=== PATIENT | female | born 1950 | race Caucasian/White ===

== ENCOUNTER 2023-04-11 17:06 | Inpatient (IN) ==
[2023-04-11] MEDS ORDERED: SODIUM CHLORIDE 0.9% 500 ML IV SCH (17:45)
[2023-04-11 18:05] LABS: Basophils # (auto) 0.04 K/uL (0-0.2); Basophils % (auto) 0.3 %; Eosinophils # (auto) 0.28 K/uL (0-0.50); Eosinophils % (auto) 1.8 %; Hematocrit (blood only) 35.6 % (37.0-47.0); Hemoglobin 10.8 g/dl (12.0-16.0); Immature Granulocytes # (auto) 0.07 K/uL (0.01-0.20); Immature Granulocytes % (auto) 0.5 %; Lymphocytes # (auto) 0.98 K/uL (1.2-3.4); Lymphocytes % (auto) 6.3 %; Mean Corpuscular Hemoglobin 23.4 pg (25.0-34.0); Mean Corpuscular Hgb Conc 30.3 g/dL (32.0-36.0); Mean Corpuscular Volume 77.1 fL (80.0-100.0); Mean Platelet Volume 9.9 fL (9.4-12.4); Monocytes # (auto) 0.89 K/uL (0.11-0.59); Monocytes % (auto) 5.7 %; Neutrophils # (auto) 13.25 K/uL (1.40-6.50); Neutrophils % (auto) 85.4 %; Platelet Count 409 K/uL (130-400); RDW Coefficient of Variation 16.5 % (11.5-14.5); RDW Standard Deviation 45.7 fL (36.4-46.3); Red Blood Count 4.62 M/uL (4.20-5.40); White Blood Count 15.51 K/ul (4.8-10.8)
--- NOTE | 2023-04-11 18:13 | Emergency Department Note ---
Impression & Plan Colitis, Metastatic carcinoma, A-fib, Weakness, Dehydration ED Provider Note Provider: Doc Engel MD DATE OF SERVICE: 04/11/2023 CHIEF COMPLAINT: Weakness, diarrhea, difficulty swallowing HISTORY OF PRESENT ILLNESS: Patient is a 72-year-old female history of cervical transfer apparently initially treated in 2009 but with recurrence now into her spine following with [facility] oncology as well as radiation oncology here presenting with family for worsening weakness development of diarrhea and difficulty eating and drinking over the last several days. No blood in the stool. States it feels like he tries to eat something and feels like it almost gets stuck in her esophagus and then comes back up. Generally weak but no fevers. Denies significant chest pain or shortness of breath. Some diffuse abdominal pain sometimes sharp in nature. No falls. Has been using some tramadol at home for pain. Feels like she is dehydrated. Denies significant leg swelling at this time. History of C. difficile in the recent past and hospitalized at [facility] by their report. 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 There was concern for toxicity from chemotherapy and that she is considering radiation therapy. PAST MEDICAL HISTORY: As noted above MEDICATIONS: Reviewed home medication list includes Eliquis SOCIAL HISTORY: Resides at home with sister PHYSICAL EXAM: GENERAL: alert and oriented in no acute distress on stretcher fatigued and appears Head: normocephalic and atraumatic EYES: No injection, discharge or icterus. NECK: Trachea midline. ENT: Mucous membranes pink and somewhat tacky LUNGS: Airway patent. No retractions. Breath sounds clear HEART: Irregularly irregular rate and rhythm. No chest wall tenderness ABDOMEN: Soft with some mild mid abdominal tenderness. SKIN: Acyanotic, warm, dry, with some scattered petechiae on the left forearm. EXTREMITIES: Without swelling, tenderness or deformity NEUROLOGICAL: No focal deficits. No aphasia. No facial droop or slurred speech. EK bpm atrial fibrillation without acute ST segment elevation or obvious depression noted with a QTc of 449. CONTINUOUS CARDIAC MONITORING: was ordered and showed a heart rate of 80s-90s bpm in atrial fibrillation Patient's laboratory studies and imaging reviewed. Differential includes Infection, gastrointestinal issue such as perforation, obstruction, C. difficile dehydration, metabolic abnormality, hypo/hyperglycemia, electrolyte disturbance, anemia, hypoxia, cardiac sources, neurologic, as well as other pathologies. IMPRESSION/MEDICAL DECISION MAKING: Stool studies ordered. Labs and cultures ordered given her history of radiation cancer. Not on chemotherapy by her report. Question if the difficulty swallowing may be a bit of radiation esophagitis. No blood reported in diarrhea however. Concerns for some dehydration. History of some "finicky "kidneys according to family. Case management assisting with obtaining outpatient [facility] oncology records. Given the patient's abdominal tenderness a CT scan without contrast with her renal function was ordered there and given some IV fluid hydration. Patient and rate controlled A-fib with history of similar by report. Basic blood work obtained here with leukocytosis of 15. Mild anemia of 10.8. Platelets mildly elevated 409. Likely more dehydration. Cautiously hydrate given history of CHF by record. Chemistries with mild hyponatremia and hypokalemia. Creatinine of 2.16 but unclear exact baseline. Lactate not elevated and doubt sepsis. No severe transaminitis or bilirubin elevation. Magnesium within normal limits. No TSH abnormality. Lipase mildly elevated 35.4 began unsure of exact baseline. Urinalysis without signs of infection. Negative COVID. CT scan with findings of infectious inflammatory colitis. Stool sample is pending. Given a bit of morphine and Zofran here as well as some maintenance IV fluid. Discussed with her staying for further evaluation. Stool testing pending but do have some suspicions that she has had recent C. difficile and the stool was very green and consistent with C. difficile. Ordered dose of oral vancomycin given what clearly appears like a C. difficile stool sample. Discussed with patient and family and they are agreeable to plan to stay for observation and further care. Discussed with hospitalist. DIAGNOSIS: Colitis, weakness, dehydration, afib, metastatic carcinoma DISPOSITION: Hospitalist will evaluate Patient was agreeable with this plan. Past Med/Surg History Medical History (Updated 04/11/23 @ 20:36 by Doc Engel M.D.) Afib Anemia Anticoagulated C. difficile colitis CAD (coronary artery disease) Cellulitis Cervical cancer Chronic diastolic heart failure CKD (chronic kidney disease) Depressive disorder DVT (deep venous thrombosis) Dysphagia Hx of radiation therapy pelvic and cervical brachytherapy 2009 Hyperlipidemia Hypertension Hypothyroidism IBS (irritable colon syndrome) Melanoma back Pulmonary emboli Reflux esophagitis Sepsis Type 2 diabetes mellitus Surgical History (Updated 03/17/23 @ 11:55 by Amber Velasquez RN) H/O heart artery stent Social History (Updated 03/17/23 @ 10:35 by Amber Velasquez RN) Smoking Status: Never smoker Tobacco Type: Cigarettes packs per day: 1.5; Second Hand Exposure: Yes; Do You Dip or Chew Tobacco: No; Hx Alcohol Use: No Hx Substance Use: No Preferred Language: Armenian Communication Ability: Effective Hearing Ability: Normal Principal Network Architect Required: No Beliefs That Will Affect Care: None Current Living Situation: Family Current Living Situation Comment: has own home, currently staying with sister current occupational status: retired current occupation: worked at [employer] Feels Safe at Home: Yes during the past year weight has: decreased > 10 lbs Assistive Devices: Glasses, Raised Toilet Seat and Walker Allergies Allergies Allergy/AdvReac Type Severity Reaction Status Date / Time propofol Allergy Intermediate nausea and Unverified 04/11/23 19:29 vomiting fentanyl AdvReac Intermediate nausea and Unverified 04/11/23 19:29 vomiting GREASE Allergy Intermediate GERD Uncoded 04/11/23 19:29 tomato sauce Allergy Intermediate GERD Uncoded 04/11/23 19:29 Home Meds Home Medications Medication Instructions Recorded Confirmed multivitamin 1 tab PO DAILY ##0 03/05/10 04/11/23 tramadol 50 mg tablet 50 mg PO Q6HR PRN ##0 03/04/11 04/11/23 acetaminophen 325 mg capsule 325 mg PO QID PRN Pain 03/17/23 04/11/23 amiodarone 200 mg tablet 200 mg PO DAILY 03/17/23 04/11/23 amlodipine 5 mg tablet 5 mg PO DAILY 03/17/23 04/11/23 apixaban 5 mg tablet (Eliquis) 5 mg PO BID 03/17/23 04/11/23 atorvastatin 80 mg tablet 80 mg PO DAILY 03/17/23 04/11/23 cholecalciferol (vitamin D3) 25 25 mcg PO DAILY 03/17/23 04/11/23 mcg (1,000 unit) capsule clonidine HCl 0.2 mg tablet 0.2 mg PO BID 03/17/23 04/11/23 duloxetine 20 mg capsule,delayed 20 mg PO DAILY 03/17/23 04/11/23 release ezetimibe 10 mg tablet (Zetia) 10 mg PO DAILY 03/17/23 04/11/23 famotidine 40 mg tablet 40 mg PO DAILY 03/17/23 04/11/23 fenofibrate 160 mg tablet 80 mg PO DAILY 03/17/23 04/11/23 ferrous sulfate 325 mg (65 mg 325 mg PO DAILY 03/17/23 04/11/23 iron) tablet,delayed release furosemide 40 mg tablet 40 mg PO BID 03/17/23 04/11/23 glipizide 10 mg tablet 5 mg PO DAILY 03/17/23 04/11/23 levothyroxine 25 mcg capsule 25 mcg PO DAILY 03/17/23 04/11/23 lisinopril 20 mg tablet 20 mg PO DAILY 03/17/23 04/11/23 magnesium oxide 500 mg tablet 500 mg PO DAILY 03/17/23 04/11/23 melatonin 3 mg capsule 3 mg PO HS 03/17/23 04/11/23 metoclopramide HCl 5 mg tablet 5 mg PO Q6H 03/17/23 04/11/23 metoprolol succinate 25 mg 25 mg PO DAILY 03/17/23 04/11/23 tablet,extended release 24 hr phenylephrine 0.25 %-mineral oil 1 applic CA QID PRN Hemorrhoids 03/17/23 04/11/23 14 %-petrolatm 74.9 % rectal ointment (Preparation H) Results & Data (ED) Vital Signs Vital Signs - 24 hr 04/11/23 17:14 04/11/23 17:42 04/11/23 17:49 Temperature 36.0 C L Temperature Source Temporal Artery Scan Pulse Rate 105 H 96 H Pulse Rate from SpO2 Sensor Respiratory Rate 20 Respiratory Effort / Characteristics Non-Labored Spontaneous Respiratory Depth Normal Respiratory Pattern Regular Blood Pressure 95/53 L Blood Pressure Mean 67 Blood Pressure Position Sitting Pulse Oximetry 97 97 Oxygen Delivery Method Room Air Sepsis Recent Fever Within 48 Hours No Sepsis New/Unexplained Change in Mental Status No Sepsis Action Taken by Nursing Physician Notified 04/11/23 18:00 04/11/23 19:37 04/11/23 19:56 Temperature Temperature Source Pulse Rate 92 H 93 H 86 Pulse Rate from SpO2 Sensor 91 H Respiratory Rate 22 16 Respiratory Effort / Characteristics Respiratory Depth Respiratory Pattern Blood Pressure 108/59 L 115/70 Blood Pressure Mean 75 85 Blood Pressure Position Pulse Oximetry 96 99 Oxygen Delivery Method Room Air Sepsis Recent Fever Within 48 Hours Sepsis New/Unexplained Change in Mental Status Sepsis Action Taken by Nursing Laboratory Data 04/11/23 17:30 04/11/23 17:30 Lab Results 04/11/23 04/11/23 04/11/23 Range/Units 17:30 17:30 17:30 WBC 15.51 H (4.8-10.8) K/ul RBC 4.62 (4.20-5.40) M/uL Hgb 10.8 L (12.0-16.0) g/dl Hct 35.6 L (37.0-47.0) % MCV 77.1 L (80.0-100.0) fL MCH 23.4 L (25.0-34.0) pg MCHC 30.3 L (32.0-36.0) g/dL RDW Std Deviation 45.7 (36.4-46.3) fL RDW Coeff of Shelley 16.5 H (11.5-14.5) % Plt Count 409 H (130-400) K/uL MPV 9.9 (9.4-12.4) fL Immature Gran % (Auto) 0.5 % Neut % (Auto) 85.4 % Lymph % (Auto) 6.3 % Toombs % (Auto) 5.7 % Eos % (Auto) 1.8 % Baso % (Auto) 0.3 % Neut # (Auto) 13.25 H (1.40-6.50) K/uL Lymph # (Auto) 0.98 L (1.2-3.4) K/uL Toombs # (Auto) 0.89 H (0.11-0.59) K/uL Eos # (Auto) 0.28 (0-0.50) K/uL Baso # (Auto) 0.04 (0-0.2) K/uL Immature Gran # (Auto) 0.07 (0.01-0.20) K/uL PT 15.2 H (9.0-12.0) Seconds INR 1.4 H (0.9-1.1) Sodium 134 L (136-145) mmol/L Potassium 3.3 L (3.5-5.1) mmol/L Chloride 100 (98-107) mmol/L Carbon Dioxide 24 (21-32) mmol/L Anion Gap 10 (3-11) BUN 40 H (6-23) mg/dl Creatinine 2.16 H (0.6-1.2) mg/dl Est Cr Clr Drug Dosing Not Reportable Est GFR ( Amer) 25.7 ml/min Est GFR (Non-Af Amer) 22.2 ml/min BUN/Creatinine Ratio 18.5 (10-20) Glucose 183 H (70-99(Fasting)) mg/dl Lactate (0.4-2.0) mmol/L Calcium 9.5 (8.6-10.3) mg/dl Magnesium 2.0 (1.7-2.4) mg/dl Total Bilirubin 0.5 (0.2-1.0) mg/dl AST 43 H (13-39) U/L ALT 23 (7-52) U/L Alkaline Phosphatase 53 (34-104) U/L Total Creatine Kinase 23 L (26-192) U/L Troponin I High Sens 35.4 H (0-14) pg/ml Total Protein 6.6 (6.0-8.3) gm/dl Albumin 3.2 L (3.4-5.0) gm/dl Globulin 3.4 (2.5-4.0) gm/dl Albumin/Globulin Ratio 0.9 (0.9-2) Lipase 14 (11-82) U/L TSH (0.300-4.500) uIu/ml Urine Color Urine Appearance (Clear) Urine pH (4.5-7.5) Ur Specific Marianna (1.000-1.030) Urine Protein (Negative) Urine Glucose (UA) (Negative) Urine Ketones (Negative) Urine Blood (Negative) Urine Nitrite (Negative) Urine Bilirubin (Negative) Urine Urobilinogen (Negative) Ur Leukocyte Esterase (Negative) Urine WBC (Auto) (0-5) /hpf Urine RBC (Auto) (0-4) /hpf U Hyaline Cast (Auto) (0-5) /lpf U Epithel Cells (Auto) (0-5) /lpf Urine Bacteria (Auto) (Negative) Urine Yeast SARS-CoV-2, RNA, NAAT (NEGATIVE) 08/04/11/23 04/11/23 Range/Units 17:30 17:30 17:30 WBC (4.8-10.8) K/ul RBC (4.20-5.40) M/uL Hgb (12.0-16.0) g/dl Hct (37.0-47.0) % MCV (80.0-100.0) fL MCH (25.0-34.0) pg MCHC (32.0-36.0) g/dL RDW Std Deviation (36.4-46.3) fL RDW Coeff of Shelley (11.5-14.5) % Plt Count (130-400) K/uL MPV (9.4-12.4) fL Immature Gran % (Auto) % Neut % (Auto) % Lymph % (Auto) % Toombs % (Auto) % Eos % (Auto) % Baso % (Auto) % Neut # (Auto) (1.40-6.50) K/uL Lymph # (Auto) (1.2-3.4) K/uL Toombs # (Auto) (0.11-0.59) K/uL Eos # (Auto) (0-0.50) K/uL Baso # (Auto) (0-0.2) K/uL Immature Gran # (Auto) (0.01-0.20) K/uL PT (9.0-12.0) Seconds INR (0.9-1.1) Sodium (136-145) mmol/L Potassium (3.5-5.1) mmol/L Chloride (98-107) mmol/L Carbon Dioxide (21-32) mmol/L Anion Gap (3-11) BUN (6-23) mg/dl Creatinine (0.6-1.2) mg/dl Est Cr Clr Drug Dosing Est GFR ( Amer) ml/min Est GFR (Non-Af Amer) ml/min BUN/Creatinine Ratio (10-20) Glucose (70-99(Fasting)) mg/dl Lactate 1.7 (0.4-2.0) mmol/L Calcium (8.6-10.3) mg/dl Magnesium (1.7-2.4) mg/dl Total Bilirubin (0.2-1.0) mg/dl AST (13-39) U/L ALT (7-52) U/L Alkaline Phosphatase (34-104) U/L Total Creatine Kinase (26-192) U/L Troponin I High Sens (0-14) pg/ml Total Protein (6.0-8.3) gm/dl Albumin (3.4-5.0) gm/dl Globulin (2.5-4.0) gm/dl Albumin/Globulin Ratio (0.9-2) Lipase (11-82) U/L TSH 3.354 (0.300-4.500) uIu/ml Urine Color Urine Appearance (Clear) Urine pH (4.5-7.5) Ur Specific Marianna (1.000-1.030) Urine Protein (Negative) Urine Glucose (UA) (Negative) Urine Ketones (Negative) Urine Blood (Negative) Urine Nitrite (Negative) Urine Bilirubin (Negative) Urine Urobilinogen (Negative) Ur Leukocyte Esterase (Negative) Urine WBC (Auto) (0-5) /hpf Urine RBC (Auto) (0-4) /hpf U Hyaline Cast (Auto) (0-5) /lpf U Epithel Cells (Auto) (0-5) /lpf Urine Bacteria (Auto) (Negative) Urine Yeast SARS-CoV-2, RNA, NAAT NEGATIVE (NEGATIVE) 04/11/23 Range/Units 18:50 WBC (4.8-10.8) K/ul RBC (4.20-5.40) M/uL Hgb (12.0-16.0) g/dl Hct (37.0-47.0) % MCV (80.0-100.0) fL MCH (25.0-34.0) pg MCHC (32.0-36.0) g/dL RDW Std Deviation (36.4-46.3) fL RDW Coeff of Shelley (11.5-14.5) % Plt Count (130-400) K/uL MPV (9.4-12.4) fL Immature Gran % (Auto) % Neut % (Auto) % Lymph % (Auto) % Toombs % (Auto) % Eos % (Auto) % Baso % (Auto) % Neut # (Auto) (1.40-6.50) K/uL Lymph # (Auto) (1.2-3.4) K/uL Toombs # (Auto) (0.11-0.59) K/uL Eos # (Auto) (0-0.50) K/uL Baso # (Auto) (0-0.2) K/uL Immature Gran # (Auto) (0.01-0.20) K/uL PT (9.0-12.0) Seconds INR (0.9-1.1) Sodium (136-145) mmol/L Potassium (3.5-5.1) mmol/L Chloride (98-107) mmol/L Carbon Dioxide (21-32) mmol/L Anion Gap (3-11) BUN (6-23) mg/dl Creatinine (0.6-1.2) mg/dl Est Cr Clr Drug Dosing Est GFR ( Amer) ml/min Est GFR (Non-Af Amer) ml/min BUN/Creatinine Ratio (10-20) Glucose (70-99(Fasting)) mg/dl Lactate (0.4-2.0) mmol/L Calcium (8.6-10.3) mg/dl Magnesium (1.7-2.4) mg/dl Total Bilirubin (0.2-1.0) mg/dl AST (13-39) U/L ALT (7-52) U/L Alkaline Phosphatase (34-104) U/L Total Creatine Kinase (26-192) U/L Troponin I High Sens (0-14) pg/ml Total Protein (6.0-8.3) gm/dl Albumin (3.4-5.0) gm/dl Globulin (2.5-4.0) gm/dl Albumin/Globulin Ratio (0.9-2) Lipase (11-82) U/L TSH (0.300-4.500) uIu/ml Urine Color Yellow Urine Appearance Cloudy A (Clear) Urine pH 5.0 (4.5-7.5) Ur Specific Marianna 1.010 (1.000-1.030) Urine Protein 1+ H (Negative) Urine Glucose (UA) Negative (Negative) Urine Ketones Negative (Negative) Urine Blood Negative (Negative) Urine Nitrite Negative (Negative) Urine Bilirubin Negative (Negative) Urine Urobilinogen Negative (Negative) Ur Leukocyte Esterase Negative (Negative) Urine WBC (Auto) 1-5 (0-5) /hpf Urine RBC (Auto) 0-4 (0-4) /hpf U Hyaline Cast (Auto) 1-5 (0-5) /lpf U Epithel Cells (Auto) >30 H (0-5) /lpf Urine Bacteria (Auto) Negative (Negative) Urine Yeast Not Reportable SARS-CoV-2, RNA, NAAT (NEGATIVE) Administered Medications Discontinued Medications Sodium Chloride (Nss) 500 mls @ 999 mls/hr IV .Q31M JACKY Stop: 04/11/23 18:15 Last Infusion: 04/11/23 18:26 Dose: 0 mls/hr Documented By: Admin: 04/11/23 17:55 Dose: 999 mls/hr Documented By: ALEKSANDAR Lactated Ringer's (Lr) 1,000 mls @ 125 mls/hr IV .Q8H JACKY Stop: 05/11/23 19:59 Last Admin: 04/11/23 20:24 Dose: 125 mls/hr Documented By: MORE Morphine Sulfate (Morphine Sulfate 2 Mg/Ml Carp) 2 mg IV NOW STA Stop: 04/11/23 19:57 Last Admin: 04/11/23 20:25 Dose: 2 mg Documented By: MORE Ondansetron HCl (Ondansetron Inj 2 Mg/Ml 2 Ml Vial) 4 mg IV NOW STA Stop: 04/11/23 19:57 Last Admin: 04/11/23 20:24 Dose: 4 mg Documented By: MORE Imaging Data Radiologist's Impression: Chest X-Ray 04/11/23 17:40 XR chest 1V portable CLINICAL HISTORY: weakness TECHNIQUE: Single frontal radiograph of the chest was obtained. Comparison: None available at the time of this dictation. FINDINGS: No lines and tubes are seen. The cardiomediastinal silhouette is normal. The lungs are clear. No evidence of pleural effusion or pneumothorax. IMPRESSION: No acute chest disease. ACT 112: Negative or not required by law. Electronically signed by: Papo Parsons M.D. 04/11/2023 6:19 PM Abdomen/Pelvis CT 04/11/23 17:56 CT abd pelvis wo con CLINICAL HISTORY: abd pain, diarrhea, Cancer, dehydration TECHNIQUE: Helical axial images of the abdomen and pelvis were obtained. Automated dose lowering techniques and/or adjustment according to patient size were utilized for this exam. This exam was performed without intravenous contrast. CT DOSE: 724.86 mGy.cm COMPARISON: Comparison is made to CT abdomen pelvis 03/22/[address] abdomen pelvis 02/14/2023 FINDINGS: Lower chest: Bibasilar atelectasis versus scarring is seen. Liver: Unremarkable. No focal lesions are seen. Gallbladder and biliary tree: Cholelithiasis is seen without evidence of cholecystitis. No intra- or extrahepatic biliary ductal dilation. Pancreas: Fatty replacement of the pancreas is seen. Spleen: Calcifications are noted in the spleen compatible with prior granulomatous disease. A splenule is seen. Adrenals: Unremarkable. Kidneys and ureters: Right renal cyst is seen. Bladder: Unremarkable. Reproductive organs: Unremarkable. Bowel: Bowel wall thickening and fat stranding is seen in the cecum. The appendix is unremarkable. There is a small hiatal hernia. Lymph nodes Retroperitoneal: Unremarkable. Pelvic: Unremarkable. Mesenteric: Unremarkable. Peritoneum: Normal. Vessels: Atherosclerotic calcifications are seen. Abdominal wall: Unremarkable. Bones: Degenerative changes in the visualized spine. Lytic lesion with a soft tissue mass is noted in the vertebral body. IMPRESSION: 1. Thickening of the cecum is seen compatible with infectious/inflammatory colitis. Lytic lesion of the L5 vertebra, likely neoplastic, seen on the prior radiation therapy planning CT. ACT 112: Negative or not required by law. Electronically signed by: Papo Parsons M.D. 04/11/2023 8:16 PM Discharge Plan Visit Data Chief Complaint: Illness Stated Complaint: CANCER,WEAK,DIARREAH,NOT ABLE TO KEEP FOOD DOWN ED Provider: Doc Engel Discharge Problem: Colitis, Metastatic carcinoma, A-fib, Weakness, Dehydration Patient Disposition: Being Evaluated by Hospitalist Forms Stand Alone Forms: My [facility] Prescriptions Prescriptions: No Action amiodarone 200 mg tablet 200 mg PO DAILY acetaminophen 325 mg capsule 325 mg PO QID PRN (Reason: Pain) amlodipine 5 mg tablet 5 mg PO DAILY atorvastatin 80 mg tablet 80 mg PO DAILY clonidine HCl 0.2 mg tablet 0.2 mg PO BID duloxetine 20 mg capsule,delayed release(DR/EC) 20 mg PO DAILY Eliquis 5 mg tablet 5 mg PO BID ezetimibe [Zetia] 10 mg tablet 10 mg PO DAILY famotidine 40 mg tablet 40 mg PO DAILY fenofibrate 160 mg tablet 80 mg PO DAILY ferrous sulfate 325 mg (65 mg iron) tablet,delayed release (DR/EC) 325 mg PO DAILY furosemide 40 mg tablet 40 mg PO BID glipizide 10 mg tablet 5 mg PO DAILY levothyroxine 25 mcg capsule 25 mcg PO DAILY lisinopril 20 mg tablet 20 mg PO DAILY magnesium oxide 500 mg tablet 500 mg PO DAILY melatonin 3 mg capsule 3 mg PO HS metoclopramide HCl 5 mg tablet 5 mg PO Q6H Patient Comments: 1 tablet in morning, 1 tablet at noon, 1 tablet in the evening, 1 tablet before bedtime metoprolol succinate 25 mg tablet extended release 24 hr 25 mg PO DAILY Preparation H 0.25-14-74.9 % ointment 1 applic CA QID PRN (Reason: Hemorrhoids) cholecalciferol (vitamin D3) 25 mcg (1,000 unit) capsule 25 mcg PO DAILY multivitamin Tablet 1 tab PO DAILY Qty: 0 tramadol 50 mg Tablet 50 mg PO Q6HR PRN Qty: 0 Patient Comments: PRN PAIN Referrals Referrals: Ann Pascual DO [Outside Practitioners] -
--- NOTE | 2023-04-11 18:20 | XRay Report ---
XR chest 1V portable CLINICAL HISTORY: weakness TECHNIQUE: Single frontal radiograph of the chest was obtained. Comparison: None available at the time of this dictation. FINDINGS: No lines and tubes are seen. The cardiomediastinal silhouette is normal. The lungs are clear. No evid ence of pleural effusion or pneumothorax. IMPRESSION: No acute chest disease. ACT 112: Negative or not required by law. Electronically signed by: Papo Parsons M.D. 04/11/2023 6:19 PM
[2023-04-11 18:22] LABS: Alanine Aminotransferase 23 U/L (7-52); Albumin Globulin Ratio 0.9 (0.9-2); Albumin Level 3.2 gm/dl (3.4-5.0); Alkaline Phosphatase 53 U/L (34-104); Anion Gap 10 (3-11); Aspartate Aminotransferase 43 U/L (13-39); BUN Creatinine Ratio 18.5 (10-20); Bilirubin,Total 0.5 mg/dl (0.2-1.0); Blood Urea Nitrogen 40 mg/dl (6-23); Calcium 9.5 mg/dl (8.6-10.3); Carbon Dioxide 24 mmol/L (21-32); Chloride 100 mmol/L (98-107); Creatine Kinase 23 U/L (26-192); Est GFR (African American) 25.7 ml/min; Est GFR (Non-African American) 22.2 ml/min; Globulin 3.4 gm/dl (2.5-4.0); Glucose 183 mg/dl (70-99(Fasting)); Potassium 3.3 mmol/L (3.5-5.1); Sodium 134 mmol/L (136-145); Total Protein 6.6 gm/dl (6.0-8.3)
[2023-04-11 18:29] LABS: Troponin I High Sensitivity 35.4 pg/ml (0-14)
[2023-04-11 18:33] LABS: INR 1.4 (0.9-1.1); Prothrombin Time 15.2 Seconds (9.0-12.0)
[2023-04-11 19:01] LABS: Appearance Urine Cloudy (Clear); Bacteria Urine Automated Negative (Negative); Bilirubin Urine Negative (Negative); Blood Urine Negative (Negative); Color Urine Yellow; Epithelial Cell Urine Auto >30 /lpf (0-5); Glucose Urine UA Negative (Negative); Ketones Urine Negative (Negative); Leukocyte Esterase Urine Negative (Negative); Nitrite Urine Negative (Negative); Protein Urine 1+ (Negative); RBC Urine Automated 0-4 /hpf (0-4); Urobilinogen Urine Negative (Negative)
[2023-04-11] MEDS ORDERED: MoRPHine SULFATE 2 MG/ML CARP IV STA (19:56)
[2023-04-11] MEDS ORDERED: ONDANSETRON INJ 2 MG/ML 2 ML VIAL IV STA (19:56)
[2023-04-11 19:57] LABS: Lipase 14 U/L (11-82)
[2023-04-11] MEDS ORDERED: LACTATED RINGER'S 1,000 ML IV SCH (20:00)
--- NOTE | 2023-04-11 20:18 | CT Scan Report ---
CT abd pelvis wo con CLINICAL HISTORY: abd pain, diarrhea, Cancer, dehydration TECHNIQUE: Helical axial images of the abdomen and pelvis were obtained. Automated dose lowering tech niques and/or adjustment according to patient size were utilized for this exam. This exam was perfor med without intravenous contrast. CT DOSE: 724.86 mGy.cm COMPARISON: Comparison is made to CT abdomen pelvis 03/22/[address] abdomen pelvis 02/14/2023 FINDINGS: Lower chest: Bibasilar atelectasis versus scarring is seen. Liver: Unremarkable. No focal lesions are seen. Gallbladder and biliary tree: Cholelithiasis is seen without evidence of cholecystitis. No intra- or extrahepatic biliary ductal dilation. Pancreas: Fatty replacement of the pancreas is seen. Spleen: Calcifications are noted in the spleen compatible with prior granulomatous disease. A splenul e is seen. Adrenals: Unremarkable. Kidneys and ureters: Right renal cyst is seen. Bladder: Unremarkable. Reproductive organs: Unremarkable. Bowel: Bowel wall thickening and fat stranding is seen in the cecum. The appendix is unremarkable. Th ere is a small hiatal hernia. Lymph nodes Retroperitoneal: Unremarkable. Pelvic: Unremarkable. Mesenteric: Unremarkable. Peritoneum: Normal. Vessels: Atherosclerotic calcifications are seen. Abdominal wall: Unremarkable. Bones: Degenerative changes in the visualized spine. Lytic lesion with a soft tissue mass is noted in the vertebral body. IMPRESSION: 1. Thickening of the cecum is seen compatible with infectious/inflammatory colitis. Lytic lesion of the L5 vertebra, likely neoplastic, seen on the prior radiation therapy planning CT. ACT 112: Negative or not required by law. Electronically signed by: Papo Parsons M.D. 04/11/2023 8:16 PM
[2023-04-11] MEDS ORDERED: RASPBERRY SYRUP 5 ML UDP PO STA (20:30)
[2023-04-11] MEDS ORDERED: VANCOMYCIN HCL 250 MG/5 ML SOLN PO STA (20:30)
[2023-04-11] MEDS ORDERED: NSS + 20MEQ KCL 20 MEQ/1,000 ML BAG IV ONE (20:40)
[2023-04-11 21:37] LABS: Adenovirus F 40/41 PCR Not Detected (NotDetected); Astrovirus PCR Not Detected (NotDetected); Campylobacter PCR Not Detected (NotDetected); Cryptosporidium PCR Not Detected (NotDetected); Cyclospora cayetanensis PCR Not Detected (NotDetected); Entamoeba histolytica PCR Not Detected (NotDetected); Enteroaggregative E.coli(EAEC) Not Detected (NotDetected); Enteropathogenic E.coli (EPEC) Not Detected (NotDetected); Enterotoxigenic E.coli (ETEC) Not Detected (NotDetected); Giardia lamblia PCR Not Detected (NotDetected); Plesiomonas shigelloides PCR Not Detected (NotDetected); Rotavirus A PCR Not Detected (NotDetected); Salmonella PCR Not Detected (NotDetected); Sapovirus PCR Not Detected (NotDetected); Shiga-like Toxin E.coli (STEC) Not Detected (NotDetected); Shigella/Enteroinvasive E.coli Not Detected (NotDetected); Vibrio cholerae PCR Not Detected (NotDetected); Vibrio species PCR Not Detected (NotDetected); Yersinia enterocolitica PCR Not Detected (NotDetected)
[2023-04-11 21:42] LABS: Norovirus GI/GII PCR DETECTED (NotDetected)
[2023-04-11 21:43] LABS: Cdiff Antigen Positive; Cdiff Toxin A+B Positive Cdiff Toxin (Negative); Cdiff Toxin B Gene (2yr or >) Positive Cdiff Gene (Neg)
--- NOTE | 2023-04-11 21:54 | History & Physical Report ---
Date of Service April 11, 2023 Assessment & Plan (1) UGIB (upper gastrointestinal bleed): Plan: Heme positive melanotic stool noted at the ER. hx GERD History A-fib/PE DVT on Eliquis Anemia secondary to above History chronic anemia unknown baseline Sepsis secondary to recurrent C. difficile colitis Troponin elevation secondary to illness in the setting of kidney dysfunction chronic diastolic heart failure, patient on the dry side CAD status post stent hypertension, patient hypotensive upon arrival at the ER hyperlipidemia on statin Rx DM2 on oral medications, reasonable control as of hemoglobin A1c of 7.3 today hypothyroidism, euthyroid as of today's TSH CRI (unknown baseline) metastatic cervical cancer ongoing radiotherapy, patient not ideal candidate for aggressive chemotherapy as per [facility] oncology hold due to multiple comorbidities. Outpatient palliative care consultation contemplated. Hypokalemia secondary to illness and home glipizide Rx past tobacco abuse Medical telemetry IV PPI Appropriate to hold aspirin and Eliquis for now given UGIB causing hemodynamic instability Follow H&H, transfuse PRBC to maintain hemoglobin of at least 8 given history CAD GI consult Re: UGIB N.p.o. until patient seen by GI anticipation of endoscopy Fidaxomicin for C. difficile first recurrence Monitor creatinine response to IVF Appropriate to hold lisinopril for now until creatinine back to baseline Hold clonidine given borderline BP Follow troponin, TTE for progression Retrieve recent CBC, chemistry done at [facility] to establish baseline. Basal bolus insulin adjusted for n.p.o. status, ISS BG goal 1 10-1 40 DVT prophylaxis. SCDs Re: GI bleed Full code Text document was generated using [employer] voice recognition software. It may contain grammatical or spelling errors. Kindly contact undersigned for clarification of any documentation item in question. History of Present Illness Chief Complaint: Weakness, abdominal pain, diarrhea Primary Care Provider: Kahlil Cee DO History obtained from patient and records. Medical history significant for chronic diastolic heart failure, CAD status post stent, A-fib/PE/DVT on Eliquis, hypertension, hyperlipidemia, DM2 on oral medications, hypothyroidism, CRI (unknown baseline), chronic anemia (unknown baseline), metastatic cervical cancer ongoing radiotherapy, GERD, IBS as per records, past history of C. difficile, past tobacco abuse. Last confinement in [facility] for leg cellulitis. Patient noted increasing weakness over the last few days. Watery diarrhea, dark stools attributed to iron intake. Achy abdominal pain. Some trouble swallowing. No headache, no chest pain, no unusual SOB. Lightheadedness on getting up causing patient to fall. SBP 90s upon arrival at the ER. Patient received oral vancomycin at the ER for C. difficile colitis. Medical History as above Surgical History : None as per patient Family History : Heart disease, DM Personal/Social history : Past tobacco abuse, no EtOH intake, retired grocery employee Allergies Allergy/AdvReac Type Severity Reaction Status Date / Time propofol Allergy Intermediate nausea and Unverified 04/11/23 19:29 vomiting fentanyl AdvReac Intermediate nausea and Unverified 04/11/23 19:29 vomiting GREASE Allergy Intermediate GERD Uncoded 04/11/23 19:29 tomato sauce Allergy Intermediate GERD Uncoded 04/11/23 19:29 Home Medications Medication Instructions Recorded Confirmed Type multivitamin 1 tab PO DAILY ##0 03/05/10 04/11/23 History tramadol 50 mg tablet 50 mg PO Q6HR PRN ##0 03/04/11 04/11/23 History acetaminophen 325 mg capsule 325 mg PO QID PRN Pain 03/17/23 04/11/23 History amiodarone 200 mg tablet 200 mg PO DAILY 03/17/23 04/11/23 History amlodipine 5 mg tablet 5 mg PO DAILY 03/17/23 04/11/23 History apixaban 5 mg tablet (Eliquis) 5 mg PO BID 03/17/23 04/11/23 History atorvastatin 80 mg tablet 80 mg PO DAILY 03/17/23 04/11/23 History cholecalciferol (vitamin D3) 25 25 mcg PO DAILY 03/17/23 04/11/23 History mcg (1,000 unit) capsule clonidine HCl 0.2 mg tablet 0.2 mg PO BID 03/17/23 04/11/23 History duloxetine 20 mg capsule,delayed 20 mg PO DAILY 03/17/23 04/11/23 History release ezetimibe 10 mg tablet (Zetia) 10 mg PO DAILY 03/17/23 04/11/23 History famotidine 40 mg tablet 40 mg PO DAILY 03/17/23 04/11/23 History fenofibrate 160 mg tablet 80 mg PO DAILY 03/17/23 04/11/23 History ferrous sulfate 325 mg (65 mg 325 mg PO DAILY 03/17/23 04/11/23 History iron) tablet,delayed release furosemide 40 mg tablet 40 mg PO BID 03/17/23 04/11/23 History glipizide 10 mg tablet 5 mg PO DAILY 03/17/23 04/11/23 History levothyroxine 25 mcg capsule 25 mcg PO DAILY 03/17/23 04/11/23 History lisinopril 20 mg tablet 20 mg PO DAILY 03/17/23 04/11/23 History magnesium oxide 500 mg tablet 500 mg PO DAILY 03/17/23 04/11/23 History melatonin 3 mg capsule 3 mg PO HS 03/17/23 04/11/23 History metoclopramide HCl 5 mg tablet 5 mg PO Q6H 03/17/23 04/11/23 History metoprolol succinate 25 mg 25 mg PO DAILY 03/17/23 04/11/23 History tablet,extended release 24 hr phenylephrine 0.25 %-mineral oil 1 applic SC QID PRN Hemorrhoids 03/17/23 04/11/23 History 14 %-petrolatm 74.9 % rectal ointment (Preparation H) Past Med/Surg History Medical History (Updated 04/12/23 @ 04:51 by Tony Juárez MD) Afib Anemia Anticoagulated C. difficile colitis CAD (coronary artery disease) Cellulitis Cervical cancer Chronic diastolic heart failure CKD (chronic kidney disease) Depressive disorder DVT (deep venous thrombosis) Dysphagia Hx of radiation therapy pelvic and cervical brachytherapy 2009 Hyperlipidemia Hypertension Hypothyroidism IBS (irritable colon syndrome) Melanoma back Pulmonary emboli Reflux esophagitis Sepsis Type 2 diabetes mellitus Surgical History (Updated 03/17/23 @ 11:55 by Amber Velasquez RN) H/O heart artery stent Social History (Updated 03/17/23 @ 10:35 by Amber Velasquez RN) Smoking Status: Never smoker Tobacco Type: Cigarettes packs per day: 1.5; Second Hand Exposure: Yes; Do You Dip or Chew Tobacco: No; Hx Alcohol Use: No Hx Substance Use: No Preferred Language: Nigerian Communication Ability: Effective Hearing Ability: Normal Sales Marketing Required: No Beliefs That Will Affect Care: None Current Living Situation: Family Current Living Situation Comment: has own home, currently staying with sister current occupational status: retired current occupation: worked at [employer] Feels Safe at Home: Yes during the past year weight has: decreased > 10 lbs Assistive Devices: Glasses, Raised Toilet Seat and Walker Review of Systems Review of Systems: As per HPI, all other systems reviewed and negative Physical Exam Physical Exam: GENERAL: Comfortable, no respiratory distress SKIN: Pallor, warm HEENT: Bespectacled, pale palpebral conjunctivae, no ptosis, dry buccal mucosa NECK : Supple, no tenderness CHEST : CTA, no tenderness HEART : RRR, no obvious murmurs ABDOMEN: Some distention, hypogastric tenderness RECTAL : Intact sphincter, melanotic stool (FOBT positive) EXTREMITIES : Minimal LE swelling, no LE tenderness, no other conspicuous deformities noted NEUROLOGIC : Coherent, no facial asymmetry, no other gross focality Results & Data Results & Data Vital Signs (Past 12 Hours) Vital Signs Temp Pulse Resp BP Pulse Ox O2 Del Method 04/11/23 19:56 86 04/11/23 19:37 93 H 16 115/70 99 Room Air 04/11/23 18:00 92 H 22 108/59 L 96 04/11/23 17:49 96 H 04/11/23 17:42 97 04/11/23 17:14 36.0 C L 105 H 20 95/53 L 97 Room Air Laboratory Results Laboratory Results WBC 15.51 K/ul (4.8-10.8) H 04/11/23 17:30 RBC 4.62 M/uL (4.20-5.40) 04/11/23 17:30 Hgb 10.8 g/dl (12.0-16.0) L 04/11/23 17:30 Hct 35.6 % (37.0-47.0) L 04/11/23 17:30 MCV 77.1 fL (80.0-100.0) L 04/11/23 17:30 MCH 23.4 pg (25.0-34.0) L 04/11/23 17:30 MCHC 30.3 g/dL (32.0-36.0) L 04/11/23 17:30 RDW Std Deviation 45.7 fL (36.4-46.3) 04/11/23 17:30 RDW Coeff of Shelley 16.5 % (11.5-14.5) H 04/11/23 17:30 Plt Count 409 K/uL (130-400) H 04/11/23 17:30 MPV 9.9 fL (9.4-12.4) 04/11/23 17:30 Immature Gran % (Auto) 0.5 % 04/11/23 17:30 Neut % (Auto) 85.4 % 04/11/23 17:30 Lymph % (Auto) 6.3 % 04/11/23 17:30 Dickson % (Auto) 5.7 % 04/11/23 17:30 Eos % (Auto) 1.8 % 04/11/23 17:30 Baso % (Auto) 0.3 % 04/11/23 17:30 Neut # (Auto) 13.25 K/uL (1.40-6.50) H 04/11/23 17:30 Lymph # (Auto) 0.98 K/uL (1.2-3.4) L 04/11/23 17:30 Dickson # (Auto) 0.89 K/uL (0.11-0.59) H 04/11/23 17:30 Eos # (Auto) 0.28 K/uL (0-0.50) 04/11/23 17:30 Baso # (Auto) 0.04 K/uL (0-0.2) 04/11/23 17:30 Immature Gran # (Auto) 0.07 K/uL (0.01-0.20) 04/11/23 17:30 PT 15.2 Seconds (9.0-12.0) H 04/11/23 17:30 INR 1.4 (0.9-1.1) H 04/11/23 17:30 Sodium 134 mmol/L (136-145) L 04/11/23 17:30 Potassium 3.3 mmol/L (3.5-5.1) L 04/11/23 17:30 Chloride 100 mmol/L (98-107) 04/11/23 17:30 Carbon Dioxide 24 mmol/L (21-32) 04/11/23 17:30 Anion Gap 10 (3-11) 04/11/23 17:30 BUN 40 mg/dl (6-23) H 04/11/23 17:30 Creatinine 2.16 mg/dl (0.6-1.2) H 04/11/23 17:30 Est Cr Clr Drug Dosing Not Reportable 04/11/23 17:30 Est GFR ( Amer) 25.7 ml/min 04/11/23 17:30 Est GFR (Non-Af Amer) 22.2 ml/min 04/11/23 17:30 BUN/Creatinine Ratio 18.5 (10-20) 04/11/23 17:30 Glucose 183 mg/dl (70-99(Fasting)) H 04/11/23 17:30 Lactate 1.7 mmol/L (0.4-2.0) 04/11/23 17:30 Calcium 9.5 mg/dl (8.6-10.3) 04/11/23 17:30 Magnesium 2.0 mg/dl (1.7-2.4) 04/11/23 17:30 Total Bilirubin 0.5 mg/dl (0.2-1.0) 04/11/23 17:30 AST 43 U/L (13-39) H 04/11/23 17:30 ALT 23 U/L (7-52) 04/11/23 17:30 Alkaline Phosphatase 53 U/L (34-104) 04/11/23 17:30 Total Creatine Kinase 23 U/L (26-192) L 04/11/23 17:30 Troponin I High Sens 35.4 pg/ml (0-14) H 04/11/23 17:30 Total Protein 6.6 gm/dl (6.0-8.3) 04/11/23 17:30 Albumin 3.2 gm/dl (3.4-5.0) L 04/11/23 17:30 Globulin 3.4 gm/dl (2.5-4.0) 04/11/23 17:30 Albumin/Globulin Ratio 0.9 (0.9-2) 04/11/23 17:30 Lipase 14 U/L (11-82) 04/11/23 17:30 TSH 3.354 uIu/ml (0.300-4.500) 04/11/23 17:30 Urine Color Yellow 04/11/23 18:50 Urine Appearance Cloudy (Clear) A 04/11/23 18:50 Urine pH 5.0 (4.5-7.5) 04/11/23 18:50 Ur Specific [place] 1.010 (1.000-1.030) 04/11/23 18:50 Urine Protein 1+ (Negative) H 04/11/23 18:50 Urine Glucose (UA) Negative (Negative) 04/11/23 18:50 Urine Ketones Negative (Negative) 04/11/23 18:50 Urine Blood Negative (Negative) 04/11/23 18:50 Urine Nitrite Negative (Negative) 04/11/23 18:50 Urine Bilirubin Negative (Negative) 04/11/23 18:50 Urine Urobilinogen Negative (Negative) 04/11/23 18:50 Ur Leukocyte Esterase Negative (Negative) 04/11/23 18:50 Urine WBC (Auto) 1-5 /hpf (0-5) 04/11/23 18:50 Urine RBC (Auto) 0-4 /hpf (0-4) 04/11/23 18:50 U Hyaline Cast (Auto) 1-5 /lpf (0-5) 04/11/23 18:50 U Epithel Cells (Auto) >30 /lpf (0-5) H 04/11/23 18:50 Urine Bacteria (Auto) Negative (Negative) 04/11/23 18:50 Urine Yeast Not Reportable 04/11/23 18:50 Stl C. cayetanensis PCR Not Detected (NotDetected) 04/11/23 20:05 Stool Rotavirus A PCR Not Detected (NotDetected) 04/11/23 20:05 Stl Adenov F 40/41 PCR Not Detected (NotDetected) 04/11/23 20:05 Stool Astrovirus (PCR) Not Detected (NotDetected) 04/11/23 20:05 Stool Campylobacter PCR Not Detected (NotDetected) 04/11/23 20:05 Stl C. diff Tox B Gene Positive Cdiff Gene (Neg) H 04/11/23 20:05 Stl C.difficile Tox A&B Positive Cdiff Toxin (Negative) A* 04/11/23 20:05 Stool Cryptosporidium PCR Not Detected (NotDetected) 04/11/23 20:05 Stl E.coli Shiga Tox PCR Not Detected (NotDetected) 04/11/23 20:05 Stl Enterotoxigenic E PCR Not Detected (NotDetected) 04/11/23 20:05 Stool EPEC (PCR) Not Detected (NotDetected) 04/11/23 20:05 Stool EAEC (PCR) Not Detected (NotDetected) 04/11/23 20:05 Stl E. histolytica PCR Not Detected (NotDetected) 04/11/23 20:05 Stool Giardia Lamblia PCR Not Detected (NotDetected) 04/11/23 20:05 Stool Salmonella PCR Not Detected (NotDetected) 04/11/23 20:05 Stool Sapovirus (PCR) Not Detected (NotDetected) 04/11/23 20:05 Stl P. shigelloides PCR Not Detected (NotDetected) 04/11/23 20:05 Stl Shigella/EIEC PCR Not Detected (NotDetected) 04/11/23 20:05 St Y.enterocolitica PCR Not Detected (NotDetected) 04/11/23 20:05 Stool Vibrio (PCR) Not Detected (NotDetected) 04/11/23 20:05 Stl Vibrio cholerae PCR Not Detected (NotDetected) 04/11/23 20:05 Stl Norovirus GI/GII PCR DETECTED (NotDetected) A* 04/11/23 20:05 SARS-CoV-2, RNA, NAAT NEGATIVE (NEGATIVE) 04/11/23 17:30 Impressions Chest X-Ray 04/11/23 17:40 XR chest 1V portable CLINICAL HISTORY: weakness TECHNIQUE: Single frontal radiograph of the chest was obtained. Comparison: None available at the time of this dictation. FINDINGS: No lines and tubes are seen. The cardiomediastinal silhouette is normal. The lungs are clear. No evidence of pleural effusion or pneumothorax. IMPRESSION: No acute chest disease. ACT 112: Negative or not required by law. Electronically signed by: Papo Parsons M.D. 04/11/2023 6:19 PM Abdomen/Pelvis CT 04/11/23 17:56 CT abd pelvis wo con CLINICAL HISTORY: abd pain, diarrhea, Cancer, dehydration TECHNIQUE: Helical axial images of the abdomen and pelvis were obtained. Automated dose lowering techniques and/or adjustment according to patient size were utilized for this exam. This exam was performed without intravenous contrast. CT DOSE: 724.86 mGy.cm COMPARISON: Comparison is made to CT abdomen pelvis 03/22/[address] abdomen pelvis 02/14/2023 FINDINGS: Lower chest: Bibasilar atelectasis versus scarring is seen. Liver: Unremarkable. No focal lesions are seen. Gallbladder and biliary tree: Cholelithiasis is seen without evidence of cholecystitis. No intra- or extrahepatic biliary ductal dilation. Pancreas: Fatty replacement of the pancreas is seen. Spleen: Calcifications are noted in the spleen compatible with prior granulomatous disease. A splenule is seen. Adrenals: Unremarkable. Kidneys and ureters: Right renal cyst is seen. Bladder: Unremarkable. Reproductive organs: Unremarkable. Bowel: Bowel wall thickening and fat stranding is seen in the cecum. The appendix is unremarkable. There is a small hiatal hernia. Lymph nodes Retroperitoneal: Unremarkable. Pelvic: Unremarkable. Mesenteric: Unremarkable. Peritoneum: Normal. Vessels: Atherosclerotic calcifications are seen. Abdominal wall: Unremarkable. Bones: Degenerative changes in the visualized spine. Lytic lesion with a soft tissue mass is noted in the vertebral body. IMPRESSION: 1. Thickening of the cecum is seen compatible with infectious/inflammatory colitis. Lytic lesion of the L5 vertebra, likely neoplastic, seen on the prior radiation therapy planning CT. ACT 112: Negative or not required by law. Electronically signed by: Papo Parsons M.D. 04/11/2023 8:16 PM
[2023-04-11] MEDS ORDERED: PANTOprazole 80 MG in DEXTROSE 5% 100 ML IV STA (21:57)
[2023-04-11] MEDS ORDERED: FIDAXOMICIN 200 MG TAB PO STA (22:01)
[2023-04-11] MEDS ORDERED: PROMETHAZINE HCL 6.25 MG in SODIUM CHLORIDE 0.9% 50 ML IV PRN (22:05)
[2023-04-11 22:19] LABS: Estimated Average Glucose 163 mg/dl; Hemoglobin A1C 7.3 % (4.5-5.6)
[2023-04-11] MEDS ORDERED: DEXTROSE 50% 50 ML SYRINGE IV PRN (22:25)
[2023-04-11] MEDS ORDERED: CARBOHYDRATES FOR HYPOGLYCEMIA PO PRN (22:25)
[2023-04-11] MEDS ORDERED: GLUCAGON FOR INJ 1 MG VIAL SQ PRN (22:25)
[2023-04-11] MEDS ORDERED: GLUCOSE 40% GEL 15 GM TUBE PO PRN (22:25)
[2023-04-11] MEDS: INSULIN ASPART PER UNIT CHARGE SC SCH (23:01)
[2023-04-11 23:14] LABS: Hematocrit (blood only) 30.3 % (37.0-47.0); Hemoglobin 9.3 g/dl (12.0-16.0)
[2023-04-12] MEDS: PANTOprazole 40 MG in DEXTROSE 5% 100 ML IV SCH ×3 (01:03→12:02)
[2023-04-12 05:23] LABS: Basophils # (auto) 0.04 K/uL (0-0.2); Basophils % (auto) 0.3 %; Eosinophils # (auto) 0.57 K/uL (0-0.50); Eosinophils % (auto) 4.1 %; Hematocrit (blood only) 29.9 % (37.0-47.0); Hemoglobin 9.2 g/dl (12.0-16.0); Immature Granulocytes # (auto) 0.08 K/uL (0.01-0.20); Immature Granulocytes % (auto) 0.6 %; Lymphocytes # (auto) 1.48 K/uL (1.2-3.4); Lymphocytes % (auto) 10.6 %; Mean Corpuscular Hemoglobin 23.8 pg (25.0-34.0); Mean Corpuscular Hgb Conc 30.8 g/dL (32.0-36.0); Mean Corpuscular Volume 77.5 fL (80.0-100.0); Mean Platelet Volume 9.8 fL (9.4-12.4); Monocytes # (auto) 1.06 K/uL (0.11-0.59); Monocytes % (auto) 7.6 %; Neutrophils # (auto) 10.78 K/uL (1.40-6.50); Neutrophils % (auto) 76.8 %; Platelet Count 348 K/uL (130-400); RDW Coefficient of Variation 16.7 % (11.5-14.5); Red Blood Count 3.86 M/uL (4.20-5.40); White Blood Count 14.01 K/ul (4.8-10.8)
[2023-04-12 05:25] LABS: BUN Creatinine Ratio 17.1 (10-20); Calcium 8.8 mg/dl (8.6-10.3); Creatinine Clr Calc Pharmacy 22.2 ml/min; Est GFR (African American) 26.6 ml/min; Est GFR (Non-African American) 22.9 ml/min; Potassium 3.2 mmol/L (3.5-5.1)
[2023-04-12] MEDS: GLUCOSE 10 TAB/TUBE PO PRN (07:37)
[2023-04-12] MEDS: LEVOTHYROXINE SODIUM 25 MCG TABLET PO SCH (08:00)
[2023-04-12] MEDS: INSULIN ASPART PER UNIT CHARGE SC SCH ×4 (08:01→21:45)
--- NOTE | 2023-04-12 08:05 | Hospitalist Progress Note ---
Date of Service April 12, 2023 Assessment & Plan (1) Sepsis: Plan: 2/2 cdiff colitis (2) C. difficile colitis: Plan: Fidaxomicin, no evidence of active bleeding per GI. Excessive diarrhea, cont s upportive care with Imodium, IVF and tramadol for crampy pain. (3) Norovirus: Plan: acute, cont supportive care efforts. Contact precautions. (4) Anemia: Plan: chronic, stable. No overt blood loss at this time. (5) Metastatic carcinoma: Plan: possible cervical cancer with metastasis to L4/L5 vertebra per oncology (6) Afib: Plan: Chronic, currently in afib. Cont amiodarone, Toprol per home regimen. Holding apixaban at this time. (7) CAD (coronary artery disease): Plan: chronic, stable. Cont medical management. (8) Depressive disorder: Plan: chronic, stable. Cont Duloxetine per home regimen. (9) Hypothyroidism: Plan: chronic, stable. Cont Synthroid per home regimen DVT proph-SCDs Full Code Dispo-cont hospitalization Pilar Pepper DO [facility] Hospitalist Admission and Anticipated Discharge Date Admission Date: April 11, 2023 Subjective 72 yo F presents with two days of severe diarrhea and crampy abdominal pain GI saw her and doesn't appear to have an acute bleed present Came up from the ER this afternoon and had 7 BMs that were liquid watery Denies vomiting afebrile denies SOB reports bathing in city water but drinks bottled water only Review of Systems Review of Systems: All systems were reviewed and negative except as indicated on HPI above. Physical Exam Physical Exam: CONSTITUTIONAL: WNWD, vitals as above, generally well-appearing EYES: normal conjunctivae, no scleral icterus ENT: external ear and nose normal, MMM NECK: trachea midline RESPIRATORY: clear to auscultation bilaterally, no crackles, rales or wheezes, normal respiratory effort CARDIOVASCULAR: regular rate and rhythm, S1 and 2 heard without murmurs, gallops or rubs, no JVD, no peripheral edema GASTROINTESTINAL: soft, generalized tenderness, nondistended, no guarding MUSCULOSKELETAL: strength 5/5 throughout, head is normocephalic and atraumatic SKIN: warm and dry NEUROLOGIC: CN 2-12 grossly intact, no sensory deficit, normal cognition, normal speech, no tremor PSYCHIATRIC: alert cooperative and oriented to person, place and time. Euthymic mood, makes good eye contact, language grossly intact, recent and remote memory grossly intact. Results & Data Results & Data Vital Signs (Past 12 Hours) Vital Signs Pulse Resp BP Pulse Ox O2 Del Method 04/12/23 07:30 94 H 12 04/12/23 07:30 131/74 04/12/23 07:00 99 H 17 04/12/23 07:00 123/63 04/12/23 06:30 93 H 22 04/12/23 06:30 103/58 L 04/12/23 06:00 79 17 04/12/23 06:00 95/65 L 04/12/23 05:30 88 8 L 96 Room Air 04/12/23 05:30 109/64 04/12/23 07:14 88 04/12/23 05:06 97 H 18 130/70 98 04/12/23 04:30 93 H 24 107/50 L 97 04/12/23 04:00 80 15 114/44 L 96 04/12/23 03:30 86 18 97/52 L 97 04/12/23 03:00 88 23 106/57 L 96 04/12/23 02:30 83 20 99/47 L 94 Room Air 04/12/23 01:32 84 17 100/52 L 96 Room Air 04/12/23 01:00 85 15 112/69 96 Room Air 04/12/23 00:30 95 H 3 L 106/68 96 Room Air 04/11/23 23:30 88 17 111/80 97 Room Air 04/11/23 22:30 93 H 19 112/61 96 Room Air 04/11/23 22:00 87 15 100/59 L 95 Room Air 04/11/23 21:30 85 14 116/49 L 97 Room Air 04/11/23 21:00 85 12 94/40 L 96 Room Air 04/11/23 20:30 86 12 106/46 L 96 Room Air Laboratory Results Short CBC 04/11/23 04/11/23 04/12/23 Range/Units 17:30 22:40 04:50 WBC 15.51 H 14.01 H (4.8-10.8) K/ul Hgb 10.8 L 9.3 L 9.2 L (12.0-16.0) g/dl Hct 35.6 L 30.3 L 29.9 L (37.0-47.0) % Plt Count 409 H 348 (130-400) K/uL BMP 04/11/23 04/12/23 17:30 04:50 Sodium 134 L 139 Potassium 3.3 L 3.2 L Chloride 100 105 Carbon Dioxide 24 27 BUN 40 H 36 H Creatinine 2.16 H 2.10 H Glucose 183 H 62 L Calcium 9.5 8.8 Cardiac Enzymes 04/11/23 Range/Units 17:30 Total Creatine Kinase 23 L (26-192) U/L Liver Function 04/11/23 Range/Units 17:30 Total Bilirubin 0.5 (0.2-1.0) mg/dl AST 43 H (13-39) U/L ALT 23 (7-52) U/L Alkaline Phosphatase 53 (34-104) U/L Albumin 3.2 L (3.4-5.0) gm/dl Urine 04/11/23 Range/Units 18:50 Urine Color Yellow Urine Appearance Cloudy A (Clear) Urine pH 5.0 (4.5-7.5) Ur Specific [place] 1.010 (1.000-1.030) Urine Protein 1+ H (Negative) Urine Glucose (UA) Negative (Negative) Diagnostic Findings Abdomen/Pelvis CT 04/11/23 17:56 CT abd pelvis wo con CLINICAL HISTORY: abd pain, diarrhea, Cancer, dehydration TECHNIQUE: Helical axial images of the abdomen and pelvis were obtained. Aut omated dose lowering techniques and/or adjustment according to patient size were utilized for this exam. This exam was performed without intravenous contrast. CT DOSE: 724.86 mGy.cm COMPARISON: Comparison is made to CT abdomen pelvis 03/22/[address] abdomen pelvis 02/14/2023 FINDINGS: Lower chest: Bibasilar atelectasis versus scarring is seen. Liver: Unremarkable. No focal lesions are seen. Gallbladder and biliary tree: Cholelithiasis is seen without evidence of cholecystitis. No intra- or extrahepatic biliary ductal dilation. Pancreas: Fatty replacement of the pancreas is seen. Spleen: Calcifications are noted in the spleen compatible with prior granulomatous disease. A splenule is seen. Adrenals: Unremarkable. Kidneys and ureters: Right renal cyst is seen. Bladder: Unremarkable. Reproductive organs: Unremarkable. Bowel: Bowel wall thickening and fat stranding is seen in the cecum. The appendix is unremarkable. There is a small hiatal hernia. Lymph nodes Retroperitoneal: Unremarkable. Pelvic: Unremarkable. Mesenteric: Unremarkable. Peritoneum: Normal. Vessels: Atherosclerotic calcifications are seen. Abdominal wall: Unremarkable. Bones: Degenerative changes in the visualized spine. Lytic lesion with a soft tissue mass is noted in the vertebral body. IMPRESSION: 1. Thickening of the cecum is seen compatible with infectious/inflammatory colitis. Lytic lesion of the L5 vertebra, likely neoplastic, seen on the prior radiation therapy planning CT. ACT 112: Negative or not required by law. Electronically signed by: Papo Parsons M.D. 04/11/2023 8:16 PM Medications Administered Current Inpatient Medications Amiodarone HCl (Amiodarone 200 Mg Tab) 200 mg PO DAILY JACKY Stop: 05/12/23 08:59 Amlodipine Besylate (Amlodipine Besylate 5 Mg Tab) 5 mg PO DAILY JACKY Stop: 05/12/23 08:59 Atorvastatin Calcium (Atorvastatin 40 Mg Tab) 80 mg PO DAILY JACKY Stop: 05/12/23 08:59 Dextrose (Dextrose 50% 50 Ml Syringe) 25 - 50 ml IV UD PRN; Protocol PRN Reason: Hypoglycemia Protocol Stop: 05/11/23 22:24 Duloxetine HCl (Duloxetine Hcl 20 Mg Cap) 20 mg PO DAILY JACKY Stop: 05/12/23 08:59 Famotidine (Famotidine 40 Mg Tablet) 40 mg PO DAILY JACKY Stop: 05/12/23 08:59 Fidaxomicin (Fidaxomicin 200 Mg Tab) 200 mg PO BID JACKY Stop: 04/22/23 08:59 Glucagon (Glucagon For Inj 1 Mg Vial) 1 mg SQ UD PRN; Protocol PRN Reason: Hypoglycemia Protocol Stop: 05/11/23 22:24 Glucose (Glucose 10 Tab/Tube) 4 - 8 tab PO UD PRN; Protocol PRN Reason: Hypoglycemia Treatment Stop: 05/11/23 22:24 Last Admin: 04/12/23 07:37 Dose: 4 tab Glucose (Glucose 40% Gel 15 Gm Tube) 15 - 30 gm PO UD PRN; Protocol PRN Reason: Hypoglycemia Protocol Stop: 05/11/23 22:24 Hydromorphone HCl (Hydromorphone Inj 0.5 Mg/0.5 Ml Syr) 0.25 mg IV Q6H PRN PRN Reason: Pain Stop: 04/25/23 22:04 Promethazine HCl 6.25 mg/ (Sodium Chloride) 50.25 mls @ 201 mls/hr IV Q6H PRN PRN Reason: Nausea And Vomiting Stop: 05/11/23 22:04 Pantoprazole Sodium 40 mg/ (Dextrose) 100 mls @ 20 mls/hr IV Q5H [facility] Stop: 05/12/23 00:44 Last Admin: 04/12/23 06:05 Dose: 8 mg/hr, 20 mls/hr Potassium Chloride/Sodium Chloride (Normal Saline W/20 Meq Kcl) 20 meq in 1,000 mls @ 100 mls/hr IV .Q10H [facility]; Protocol Stop: 04/13/23 06:59 Insulin Aspart (Insulin Aspart Per Unit Charge) 0 units SC ACHS [facility] Stop: 05/11/23 22:24 Last Admin: 04/12/23 08:01 Dose: Not Given Levothyroxine Sodium (Levothyroxine Sodium 25 Mcg Tablet) 25 mcg PO DAILYBB [facility] Stop: 05/12/23 06:29 Last Admin: 04/12/23 08:00 Dose: 25 mcg Metoprolol Succinate (Metoprolol Succ 25mg Ext Rel Tab) 25 mg PO DAILY [facility] Stop: 05/12/23 08:59 Miscellaneous (Fenofibrate 160 Mg - Order Awaiting Action) 1 each N/A QS [facility] Stop: 05/12/23 00:00 Last Admin: 04/12/23 00:49 Dose: Not Given Miscellaneous (Carbohydrates For Hypoglycemia ) 15 - 30 gm PO UD PRN PRN Reason: Hypoglycemia Protocol Stop: 05/11/23 22:24 Multivitamins (Multivitamin Tab) 1 tab PO DAILY [facility] Stop: 05/12/23 08:59 Tramadol HCl (Tramadol Hcl 50 Mg Tablet) 25 - 50 mg PO Q4H PRN PRN Reason: Pain Stop: 05/11/23 22:04
[2023-04-12] MEDS: traMADol HCL 50 MG TABLET PO PRN ×3 (08:14→23:39)
--- NOTE | 2023-04-12 08:19 | Gastrointestinal Consultation ---
Date of Consultation April 12, 2023 Assessment & Plan (1) Colitis: Secondary to C-Diff. This seems to be improving, based on no BMs since yesterday. (2) Enteritis due to Norovirus: Again, diarrhea seems to be improving. (3) Dysphagia: Chronic. Plan I do not see evidence of GI bleeding. She is anemia, but stable since admission w/o transfusion and no gross GI bleeding here. Will request endoscopy and path results from [facility]. Will consider EGD after those records are reviewed, but likely will defer to her regular civil engineering intern. Continue Fidaxomicin 200mg BID. Adv diet Supervising Physician Co-Signing Physician Notes Attg add: Pt with diarrhea, abd joy x 3 days. Also with dysphagia x 1 month. C diff positive. Likely C diff diarrhea. Follow hgb. Agree with [facility]. History of Present Illness Reason for Consultation: GI Bleed Requesting Physician: Franck Attending Physician: Pilar Pepper, History of Present Illness Ms. Lizeth Leon is a 72 yr old female pt of Dr. Kahlil Tilley with a history of CHF, CAD, HTN, DM2, Hypothyroidism, cervical cancer w mets to the spine undergoing radiation (not a candidate for aggressive chemo) who presented to the ED yesterday for diarrhea, poor po intake. On arrival, Stool (+) for C-diff gene and toxin as well as Norovirus. CT w cecal wall thickening. GI is consulted for a GI bleed. Hb was 10.8 on arrival ->9.2 and BUN is 36, Cr 2.1. She has not received blood products. The pt tells me that she had c-diff recently, and was hospitalized at [facility] for that issue (other records say for leg cellulitis as well during her most recent hospitalization). She says that she had blood in her BMs then, but not recently. She reports having had flex sig during that recent admission, by Dr. Monterroso and that she has also had a full colonoscopy by that physician but doesn't recall when. She hasn't had any BMs since arrival. She does not have nausea or vomiting but does have a moderate upper abd pain. She also reports dysphagia, feeling like some foods get stuck during swallowing, causing her to cough up phlegm. This has been present a few times/month for several months. She is unsure if she has previously undergone EGD. Allergies Allergy/AdvReac Type Severity Reaction Status Date / Time propofol Allergy Intermediate nausea and Unverified 04/11/23 19:29 vomiting fentanyl AdvReac Intermediate nausea and Unverified 04/11/23 19:29 vomiting GREASE Allergy Intermediate GERD Uncoded 04/11/23 19:29 tomato sauce Allergy Intermediate GERD Uncoded 04/11/23 19:29 Home Medications Medication Instructions Recorded Confirmed Type multivitamin 1 tab PO DAILY ##0 03/05/10 04/11/23 History tramadol 50 mg tablet 50 mg PO Q6HR PRN ##0 03/04/11 04/11/23 History acetaminophen 325 mg capsule 325 mg PO QID PRN Pain 03/17/23 04/11/23 History amiodarone 200 mg tablet 200 mg PO DAILY 03/17/23 04/11/23 History amlodipine 5 mg tablet 5 mg PO DAILY 03/17/23 04/11/23 History apixaban 5 mg tablet (Eliquis) 5 mg PO BID 03/17/23 04/11/23 History atorvastatin 80 mg tablet 80 mg PO DAILY 03/17/23 04/11/23 History cholecalciferol (vitamin D3) 25 25 mcg PO DAILY 03/17/23 04/11/23 History mcg (1,000 unit) capsule clonidine HCl 0.2 mg tablet 0.2 mg PO BID 03/17/23 04/11/23 History duloxetine 20 mg capsule,delayed 20 mg PO DAILY 03/17/23 04/11/23 History release ezetimibe 10 mg tablet (Zetia) 10 mg PO DAILY 03/17/23 04/11/23 History famotidine 40 mg tablet 40 mg PO DAILY 03/17/23 04/11/23 History fenofibrate 160 mg tablet 80 mg PO DAILY 03/17/23 04/11/23 History ferrous sulfate 325 mg (65 mg 325 mg PO DAILY 03/17/23 04/11/23 History iron) tablet,delayed release furosemide 40 mg tablet 40 mg PO BID 03/17/23 04/11/23 History glipizide 10 mg tablet 5 mg PO DAILY 03/17/23 04/11/23 History levothyroxine 25 mcg capsule 25 mcg PO DAILY 03/17/23 04/11/23 History lisinopril 20 mg tablet 20 mg PO DAILY 03/17/23 04/11/23 History magnesium oxide 500 mg tablet 500 mg PO DAILY 03/17/23 04/11/23 History melatonin 3 mg capsule 3 mg PO HS 03/17/23 04/11/23 History metoclopramide HCl 5 mg tablet 5 mg PO Q6H 03/17/23 04/11/23 History metoprolol succinate 25 mg 25 mg PO DAILY 03/17/23 04/11/23 History tablet,extended release 24 hr phenylephrine 0.25 %-mineral oil 1 applic CA QID PRN Hemorrhoids 03/17/23 04/11/23 History 14 %-petrolatm 74.9 % rectal ointment (Preparation H) Patient History Medical History (Updated 04/12/23 @ 09:37 by KARY Michelle) Afib Anemia Anticoagulated C. difficile colitis CAD (coronary artery disease) Cellulitis Cervical cancer Chronic diastolic heart failure CKD (chronic kidney disease) Depressive disorder DVT (deep venous thrombosis) Dysphagia Hx of radiation therapy pelvic and cervical brachytherapy 2009 Hyperlipidemia Hypertension Hypothyroidism IBS (irritable colon syndrome) Melanoma back Pulmonary emboli Reflux esophagitis Sepsis Type 2 diabetes mellitus Surgical History (Updated 03/17/23 @ 11:55 by Amber Velasquez RN) H/O heart artery stent Social History (Updated 03/17/23 @ 10:35 by Amber Velasquez RN) Smoking Status: Never smoker Tobacco Type: Cigarettes packs per day: 1.5; Second Hand Exposure: Yes; Do You Dip or Chew Tobacco: No; Hx Alcohol Use: No Hx Substance Use: No Preferred Language: Vietnamese Communication Ability: Effective Hearing Ability: Normal [place] Required: No Beliefs That Will Affect Care: None Current Living Situation: Family Current Living Situation Comment: has own home, currently staying with sister current occupational status: retired current occupation: worked at [employer] Feels Safe at Home: Yes during the past year weight has: decreased > 10 lbs Assistive Devices: Glasses, Raised Toilet Seat and Walker Review of Systems Review of Systems: ROS: Gen: + Weakness; Denies fevers or weight loss. Eyes: No eye redness, or pain, no recent vision changes Resp: No SOB, no cough Cardio: No palpitations/irregular beats, no chest pain GI: + as per HPI, otherwise (-). : Denies pain on urination Skin: No jaundice, itching or new rashes Physical Exam Constitutional: well developed, + ill appearing (chronically), cooperative and + overweight; no acute distress Eyes: PERRL, conjunctivae normal, anicteric sclerae ENMT: external ear and nose normal, oropharynx normal Neck: trachea midline, no thyromegaly Respiratory: No respiratory effort; fine crackles present both bases. No wheezes or rhonchi. Cardiovascular: RRR, no murmur, no edema Gastrointestinal (Abdomen): Soft, non distended, hypoactive BS, + moderate upper abdomen tenderness on exam. Musculoskeletal: no cyanosis or clubbing, extremities motor strength 5/5 Psychiatric: A+Ox3, euthymic affect Lymphatic: no cervical or axillary lymphadenopathy Results & Data Vital Signs (Past 12 Hours) Vital Signs Pulse Resp BP Pulse Ox O2 Del Method 04/12/23 07:30 94 H 12 04/12/23 07:30 131/74 04/12/23 07:00 99 H 17 04/12/23 07:00 123/63 04/12/23 06:30 93 H 22 04/12/23 06:30 103/58 L 04/12/23 06:00 79 17 04/12/23 06:00 95/65 L 04/12/23 05:30 88 8 L 96 Room Air 04/12/23 05:30 109/64 04/12/23 07:14 88 04/12/23 05:06 97 H 18 130/70 98 04/12/23 04:30 93 H 24 107/50 L 97 04/12/23 04:00 80 15 114/44 L 96 04/12/23 03:30 86 18 97/52 L 97 04/12/23 03:00 88 23 106/57 L 96 04/12/23 02:30 83 20 99/47 L 94 Room Air 04/12/23 01:32 84 17 100/52 L 96 Room Air 04/12/23 01:00 85 15 112/69 96 Room Air 04/12/23 00:30 95 H 3 L 106/68 96 Room Air 04/11/23 23:30 88 17 111/80 97 Room Air 04/11/23 22:30 93 H 19 112/61 96 Room Air 04/11/23 22:00 87 15 100/59 L 95 Room Air 04/11/23 21:30 85 14 116/49 L 97 Room Air 04/11/23 21:00 85 12 94/40 L 96 Room Air 04/11/23 20:30 86 12 106/46 L 96 Room Air Laboratory Results WBC 14, Hb 9.2, Hct 29, Plts 348, Na 139, K 3.2, Cl 105, Co2 27, BUN 36, Cr 2.1 Stool (+) for C-diff gene and toxin on 04/11/23. Diagnostic Findings Non contrast CTAP 04/12/23: Thickening of the cecum is seen compatible with infectious/inflammatory colitis. Lytic lesion of the L5 vertebra, likely neoplastic, seen on the prior radiation therapy planning CT.
[2023-04-12] MEDS ORDERED: cloNIDine HCL 0.1 MG TAB PO SCH (09:00)
[2023-04-12 09:07] LABS: Hematocrit (blood only) 32.2 % (37.0-47.0); Hemoglobin 9.6 g/dl (12.0-16.0)
[2023-04-12] MEDS: POTASSIUM CHLORIDE CRTAB 20 MEQ TABCR PO SCH ×2 (09:38→14:12)
[2023-04-12] MEDS: amLODIPine BESYLATE 5 MG TAB PO SCH (09:40)
[2023-04-12] MEDS: METOPROLOL SUCC 25MG EXT REL TAB PO SCH (09:59)
[2023-04-12] MEDS: FAMOTIDINE 40 MG TABLET PO SCH (09:59)
[2023-04-12] MEDS: MULTIVITAMIN TAB PO SCH (09:59)
[2023-04-12] MEDS: DULoxetine HCL 20 MG CAP PO SCH (09:59)
[2023-04-12] MEDS: AMIODARONE 200 MG TAB PO SCH (10:00)
[2023-04-12] MEDS: ATORVASTATIN 40 MG TAB PO SCH (10:00)
[2023-04-12] MEDS: FIDAXOMICIN 200 MG TAB PO SCH ×2 (10:00→21:27)
[2023-04-12] MEDS: HYDROmorphone INJ 0.5 MG/0.5 ML SYR IV PRN (10:29)
[2023-04-12] MEDS: NSS + 20MEQ KCL 20 MEQ/1,000 ML BAG IV SCH ×3 (14:03→23:42)
--- NOTE | 2023-04-12 14:06 | Electrocardiogram Report ---
Test Reason : Blood Pressure : / mmHG Vent. Rate : 085 BPM Atrial Rate : 000 BPM P-R Int : 000 ms QRS Dur : 086 ms QT Int : 378 ms P-R-T Axes : 000 004 138 degrees QTc Int : 449 ms Atrial fibrillation Inferior infarct , age undetermined Anteroseptal infarct , age undetermined Abnormal ECG When compared with ECG of 28-JUL-2005 12:43, Atrial fibrillation has replaced Sinus rhythm Anteroseptal infarct is now Present Inferior infarct is now Present Confirmed by Andi Lazar ([id number]) on 04/12/2023 2:05:52 PM Referred By: REFERRED SELF Confirmed By:Andi Lazar
[2023-04-12 14:38] LABS: Hematocrit (blood only) 31.2 % (37.0-47.0); Hemoglobin 9.5 g/dl (12.0-16.0)
[2023-04-12] MEDS ORDERED: NYSTATIN POWDER 15GM BTL EXT PRN (15:44)
[2023-04-12] MEDS ORDERED: traMADol HCL 50 MG TABLET PO STA (17:17)
[2023-04-12] MEDS ORDERED: LOPERAMIDE HCL 2 MG CAP PO STA (17:18)
[2023-04-12 20:09] LABS: Hematocrit (blood only) 32.2 % (37.0-47.0); Hemoglobin 9.7 g/dl (12.0-16.0)
[2023-04-13] MEDS: GLUCOSE 10 TAB/TUBE PO PRN (04:27)
[2023-04-13] MEDS: LEVOTHYROXINE SODIUM 25 MCG TABLET PO SCH (05:38)
[2023-04-13 08:02] LABS: Hematocrit (blood only) 31.6 % (37.0-47.0); Hemoglobin 9.7 g/dl (12.0-16.0); Mean Corpuscular Hemoglobin 23.3 pg (25.0-34.0); Mean Corpuscular Hgb Conc 30.7 g/dL (32.0-36.0); Mean Platelet Volume 9.9 fL (9.4-12.4); Platelet Count 346 K/uL (130-400); RDW Coefficient of Variation 16.9 % (11.5-14.5); RDW Standard Deviation 46.2 fL (36.4-46.3); Red Blood Count 4.16 M/uL (4.20-5.40); White Blood Count 14.94 K/ul (4.8-10.8)
[2023-04-13] MEDS: INSULIN ASPART PER UNIT CHARGE SC SCH ×4 (08:10→20:46)
[2023-04-13 08:20] LABS: BUN Creatinine Ratio 16.3 (10-20); Calcium 8.6 mg/dl (8.6-10.3); Creatinine Clr Calc Pharmacy 26.4 ml/min; Est GFR (African American) 32.5 ml/min; Potassium 4.2 mmol/L (3.5-5.1)
[2023-04-13] MEDS: ATORVASTATIN 40 MG TAB PO SCH (08:57)
[2023-04-13] MEDS: DULoxetine HCL 20 MG CAP PO SCH (08:57)
[2023-04-13] MEDS: FAMOTIDINE 40 MG TABLET PO SCH (08:57)
[2023-04-13] MEDS: METOPROLOL SUCC 25MG EXT REL TAB PO SCH ×2 (08:58→20:45)
[2023-04-13] MEDS: amLODIPine BESYLATE 5 MG TAB PO SCH (08:58)
[2023-04-13] MEDS: MULTIVITAMIN TAB PO SCH (08:58)
[2023-04-13] MEDS: AMIODARONE 200 MG TAB PO SCH (08:58)
[2023-04-13] MEDS: FIDAXOMICIN 200 MG TAB PO SCH ×2 (09:02→20:51)
[2023-04-13] MEDS: traMADol HCL 50 MG TABLET PO PRN ×2 (09:16→20:42)
[2023-04-13] MEDS: NSS + 20MEQ KCL 20 MEQ/1,000 ML BAG IV SCH (10:52)
[2023-04-13] MEDS ORDERED: traMADol HCL 50 MG TABLET PO STA (12:23)
[2023-04-13] MEDS ORDERED: SODIUM CHLORIDE 0.9% 1000ML 1,000 ML IV ONE (12:54)
[2023-04-13] MEDS ORDERED: NSS + 20MEQ KCL 20 MEQ/1,000 ML BAG IV SCH (15:30)
--- NOTE | 2023-04-13 19:42 | Hospitalist Progress Note ---
Date of Service April 13, 2023 Assessment & Plan (1) Sepsis: Plan: 2/2 cdiff colitis (2) C. difficile colitis: Plan: Fidaxomicin, no evidence of active bleeding per GI. Excessive diarrhea, cont s upportive care with Imodium (only one dose given), IVF and tramadol for crampy pain. She is borderline severe c-diff infection and will not change abx regimen. However, if she worsens or develops shock, megacolon, etc consider vanc 500mg PO q6 and metronidazole 500mg IV q8h. Consider general surgery consult if ileus or any worsening overnight. KUB pending. (3) Norovirus: Plan: acute, cont supportive care efforts. Contact precautions. (4) Anemia: Plan: chronic, stable. No overt blood loss at this time. (5) Metastatic carcinoma: Plan: possible cervical cancer with metastasis to L4/L5 vertebra per oncology. She is undergoing XRT therapy with Dr. Steffanie Pineda which has been put on hold until after her discharge. (6) Afib: Plan: Chronic, currently in afib. Cont amiodarone, Toprol per home regimen. Holding apixaban at this time. (7) CAD (coronary artery disease): Plan: chronic, stable. Cont medical management. (8) Depressive disorder: Plan: chronic, stable. Cont Duloxetine per home regimen. (9) Hypothyroidism: Plan: chronic, stable. Cont Synthroid per home regimen I spent a total [id number] coordinating, documenting, and providing care for this patient excluding time spent in the performance of separately billed services DVT proph-SCDs Full Code Dispo-cont hospitalization Pilar Pepper DO [facility] Hospitalist Admission and Anticipated Discharge Date Admission Date: April 11, 2023 Subjective 72 yo F presents with two days of severe diarrhea and crampy abdominal pain continues to have diarrhea and not feeling well abdominal bloating and pain in her abdomen she is tachycardic in the 110s-120s not tolerating PO well Review of Systems Review of Systems: All systems were reviewed and negative except as indicated on HPI above. Physical Exam Physical Exam: CONSTITUTIONAL: WNWD, vitals as above, generally ill appearing. EYES: normal conjunctivae, no scleral icterus ENT: external ear and nose normal, MMM NECK: trachea midline RESPIRATORY: clear to auscultation bilaterally, no crackles, rales or wheezes, normal respiratory effort CARDIOVASCULAR: regular rate and rhythm, S1 and 2 heard without murmurs, gallops or rubs, no JVD, no peripheral edema GASTROINTESTINAL: soft, generalized tenderness, bloating but doesn't appear distended, no guarding MUSCULOSKELETAL: strength 5/5 throughout, head is normocephalic and atraumatic SKIN: warm and dry NEUROLOGIC: CN 2-12 grossly intact, no sensory deficit, normal cognition, normal speech, no tremor PSYCHIATRIC: alert cooperative and oriented to person, place and time. Euthymic mood, makes good eye contact, language grossly intact, recent and remote memory grossly intact. Results & Data Results & Data Vital Signs (Past 12 Hours) Vital Signs Temp Pulse Pulse Resp BP Pulse Ox O2 Del Method 04/13/23 18:32 105 H 04/13/23 08:00 111 H 04/13/23 15:13 36.4 C 118 H 19 143/82 H 96 Room Air 04/13/23 11:31 36.9 C 110 H 16 131/81 96 Room Air 04/13/23 07:55 36.9 C 105 H 16 139/81 96 Room Air Laboratory Results Short CBC 04/12/23 04/13/23 Range/Units 19:27 07:34 WBC 14.94 H (4.8-10.8) K/ul Hgb 9.7 L 9.7 L (12.0-16.0) g/dl Hct 32.2 L 31.6 L (37.0-47.0) % Plt Count 346 (130-400) K/uL BMP 04/13/23 07:34 Sodium 138 Potassium 4.2 D Chloride 112 H Carbon Dioxide 21 BUN 29 H Creatinine 1.78 H D Glucose 95 Calcium 8.6 Medications Administered Current Inpatient Medications Amiodarone HCl (Amiodarone 200 Mg Tab) 200 mg PO DAILY JACKY Stop: 05/12/23 08:59 Last Admin: 04/13/23 08:58 Dose: 200 mg Amlodipine Besylate (Amlodipine Besylate 5 Mg Tab) 5 mg PO DAILY JACKY Stop: 05/12/23 08:59 Last Admin: 04/13/23 08:58 Dose: 5 mg Atorvastatin Calcium (Atorvastatin 40 Mg Tab) 80 mg PO DAILY JACKY Stop: 05/12/23 08:59 Last Admin: 04/13/23 08:57 Dose: 80 mg Dextrose (Dextrose 50% 50 Ml Syringe) 25 - 50 ml IV UD PRN; Protocol PRN Reason: Hypoglycemia Protocol Stop: 05/11/23 22:24 Duloxetine HCl (Duloxetine Hcl 20 Mg Cap) 20 mg PO DAILY JACKY Stop: 05/12/23 08:59 Last Admin: 04/13/23 08:57 Dose: 20 mg Famotidine (Famotidine 40 Mg Tablet) 40 mg PO DAILY JACKY Stop: 05/12/23 08:59 Last Admin: 04/13/23 08:57 Dose: 40 mg Fidaxomicin (Fidaxomicin 200 Mg Tab) 200 mg PO BID JACKY Stop: 04/22/23 08:59 Last Admin: 04/13/23 09:02 Dose: 200 mg Glucagon (Glucagon For Inj 1 Mg Vial) 1 mg SQ UD PRN; Protocol PRN Reason: Hypoglycemia Protocol Stop: 05/11/23 22:24 Glucose (Glucose 10 Tab/Tube) 4 - 8 tab PO UD PRN; Protocol PRN Reason: Hypoglycemia Treatment Stop: 05/11/23 22:24 Last Admin: 04/13/23 04:27 Dose: 4 tab Glucose (Glucose 40% Gel 15 Gm Tube) 15 - 30 gm PO UD PRN; Protocol PRN Reason: Hypoglycemia Protocol Stop: 05/11/23 22:24 Hydromorphone HCl (Hydromorphone Inj 0.5 Mg/0.5 Ml Syr) 0.25 mg IV Q6H PRN PRN Reason: Pain Stop: 04/25/23 22:04 Last Admin: 04/12/23 10:29 Dose: 0.25 mg Promethazine HCl 6.25 mg/ (Sodium Chloride) 50.25 mls @ 201 mls/hr IV Q6H PRN PRN Reason: Nausea And Vomiting Stop: 05/11/23 22:04 Potassium Chloride/Dextrose/Sod Cl (D5w And 1/2nss + 20meq Kcl) 20 meq in 1,000 mls @ 100 mls/hr IV .Q10H JACKY; Protocol Stop: 04/14/23 15:44 Insulin Aspart (Insulin Aspart Per Unit Charge) 0 units SC ACHS JACKY Stop: 05/11/23 22:24 Last Admin: 04/13/23 17:56 Dose: 3 units Levothyroxine Sodium (Levothyroxine Sodium 25 Mcg Tablet) 25 mcg PO DAILYBB [facility] Stop: 05/12/23 06:29 Last Admin: 04/13/23 05:38 Dose: 25 mcg Metoprolol Succinate (Metoprolol Succ 25mg Ext Rel Tab) 25 mg PO BID [facility] Stop: 05/13/23 20:59 Miscellaneous (Fenofibrate 160 Mg - Order Awaiting Action) 1 each N/A QS [facility] Stop: 05/12/23 00:00 Last Admin: 04/13/23 17:46 Dose: Not Given Miscellaneous (Carbohydrates For Hypoglycemia ) 15 - 30 gm PO UD PRN PRN Reason: Hypoglycemia Protocol Stop: 05/11/23 22:24 Multivitamins (Multivitamin Tab) 1 tab PO DAILY [facility] Stop: 05/12/23 08:59 Last Admin: 04/13/23 08:58 Dose: 1 tab Nystatin (Nystatin Powder 15gm Btl) 1 appln EXT BID PRN PRN Reason: Affected Skin Folds Stop: 05/12/23 15:43 Tramadol HCl (Tramadol Hcl 50 Mg Tablet) 100 mg PO Q6H PRN PRN Reason: severe pain 7+ Stop: 05/13/23 17:59
[2023-04-13] MEDS: D5W AND 1/2NSS + 20MEQ KCL 20 MEQ/1,000 ML BAG IV SCH (20:42)
[2023-04-13] MEDS: ENOXAPARIN INJ 30 MG/0.3 ML SYR SQ SCH (20:43)
[2023-04-14] MEDS: D5W AND 1/2NSS + 20MEQ KCL 20 MEQ/1,000 ML BAG IV SCH (06:17)
[2023-04-14] MEDS: LEVOTHYROXINE SODIUM 25 MCG TABLET PO SCH (06:18)
[2023-04-14 06:39] LABS: Hematocrit (blood only) 32.9 % (37.0-47.0); Hemoglobin 9.8 g/dl (12.0-16.0); Mean Corpuscular Hemoglobin 23.4 pg (25.0-34.0); Mean Corpuscular Hgb Conc 29.8 g/dL (32.0-36.0); Mean Corpuscular Volume 78.7 fL (80.0-100.0); Mean Platelet Volume 10.1 fL (9.4-12.4); Platelet Count 345 K/uL (130-400); RDW Coefficient of Variation 16.8 % (11.5-14.5); RDW Standard Deviation 47.8 fL (36.4-46.3); Red Blood Count 4.18 M/uL (4.20-5.40); White Blood Count 12.31 K/ul (4.8-10.8)
[2023-04-14 07:07] LABS: BUN Creatinine Ratio 14.9 (10-20); Calcium 8.6 mg/dl (8.6-10.3); Creatinine Clr Calc Pharmacy 31.2 ml/min; Est GFR (African American) 38.7 ml/min; Est GFR (Non-African American) 33.4 ml/min; Magnesium 1.6 mg/dl (1.7-2.4); Phosphorus 2.5 mg/dl (2.5-4.9); Potassium 4.3 mmol/L (3.5-5.1)
--- NOTE | 2023-04-14 07:42 | XRay Report ---
KUB HISTORY: severe cdiff with worsened abd pain COMPARISON: Abdomen and pelvis CT 04/11/2013. FINDINGS: Borderline dilated gas-filled loops of large and small bowel seen within the abdomen. This suggests a mild ileus. No evidence for bowel obstruction. There is a right external iliac artery sten t again noted. No renal calculi. No ureteral calculi. Calcifications in the deep pelvis likely repre sent phleboliths. No pneumoperitoneum or pneumatosis. IMPRESSION: Borderline dilated gas-filled loops of large and small bowel seen within the abdomen. This favors a m ild ileus. A partial small bowel obstruction could also have a similar appearance in the appropriate clinical setting. ACT 112: Negative or not required by law. Electronically signed by: Emerson Contreras M.D. 04/14/2023 7:41 AM
[2023-04-14] MEDS: FIDAXOMICIN 200 MG TAB PO SCH ×2 (09:04→20:36)
[2023-04-14] MEDS: traMADol HCL 50 MG TABLET PO PRN ×2 (09:04→21:46)
[2023-04-14] MEDS: ATORVASTATIN 40 MG TAB PO SCH (09:05)
[2023-04-14] MEDS: amLODIPine BESYLATE 5 MG TAB PO SCH (09:05)
[2023-04-14] MEDS: FAMOTIDINE 40 MG TABLET PO SCH (09:06)
[2023-04-14] MEDS: METOPROLOL SUCC 25MG EXT REL TAB PO SCH ×2 (09:06→20:32)
[2023-04-14] MEDS: INSULIN ASPART PER UNIT CHARGE SC SCH ×4 (09:06→20:49)
[2023-04-14] MEDS: MULTIVITAMIN TAB PO SCH (09:06)
[2023-04-14] MEDS: AMIODARONE 200 MG TAB PO SCH (09:07)
[2023-04-14] MEDS: DULoxetine HCL 20 MG CAP PO SCH (09:07)
--- NOTE | 2023-04-14 17:52 | Hospitalist Progress Note ---
Date of Service April 14, 2023 Assessment & Plan (1) Sepsis: Plan: 2/2 cdiff colitis (2) C. difficile colitis: Plan: Fidaxomicin, no evidence of active bleeding per GI. Excessive diarrhea, cont supportive care with Imodium (only one dose given), IVF and tramadol for crampy pain. She is borderline severe c-diff infection and will not change abx regimen. KUB showed borderline dilated gas-filled loops of large and small bowel with possible ileus but no obstruction We will continue current management And advance diet as tolerated (3) Norovirus: Plan: acute, cont supportive care efforts. Contact precautions. (4) Anemia: Plan: chronic, stable. No overt blood loss at this time. (5) Metastatic carcinoma: Plan: Possible cervical cancer with metastasis to L4/L5 vertebra per oncology. She is undergoing XRT therapy with Dr. Steffanie Pineda which has been put on hold until after her discharge. (6) Afib: Plan: Chronic, currently in afib. Cont amiodarone, Toprol per home regimen. Holding apixaban at this time. (7) CAD (coronary artery disease): Plan: chronic, stable. Cont medical management. (8) Depressive disorder: Plan: chronic, stable. Cont Duloxetine per home regimen. (9) Hypothyroidism: Plan: chronic, stable. Cont Synthroid per home regimen DVT proph-SCDs Full Code Dispo-cont hospitalization Admission and Anticipated Discharge Date Admission Date: April 11, 2023 Subjective 04/14/2023 The patient was seen and examined in medical telemetry unit She has been complaining abdominal discomfort and KUB showed possible ileus Has been passing gas and abdomen remains soft Denies any other significant symptoms except weakness Review of Systems Review of Systems: All systems reviewed and are unremarkable except as noted below Physical Exam Physical Exam: Lying in bed comfortably Constitutional: well developed, well nourished, + ill appearing and average body habitus Eyes: PERRL, conjunctivae normal, anicteric sclerae ENMT: external ear and nose normal, oropharynx normal Neck: trachea midline, no thyromegaly Respiratory: no respiratory distress Auscultation: lungs clear to auscultation bilaterally Cardiovascular: Rate/Rhythm: regular rate and regular rhythm Heart Sounds: normal S1 and normal S2; no murmur Extremities: + edema (Trace edema bilaterally) Gastrointestinal (Abdomen): Inspection/Auscultation: normal bowel sounds; abdomen not distended Percussion/Palpation: abdomen soft; abdomen nontender Musculoskeletal: No acute arthritis involving any joint Neurologic: Alert and awake. Generally weak Lymphatic: no cervical or axillary lymphadenopathy Results & Data Results & Data Vital Signs (Past 12 Hours) Vital Signs Temp Pulse Pulse Resp BP BP Pulse Ox 04/14/23 16:00 106 H 04/14/23 15:31 36.8 C 98 H 20 130/66 94 04/14/23 12:01 36.4 C L 107 H 20 139/90 95 04/14/23 07:58 36.6 C 119 H 20 160/88 H 95 04/14/23 07:43 103 H O2 Del Method 04/14/23 16:00 04/14/23 15:31 Room Air 04/14/23 12:01 Room Air 04/14/23 07:58 Room Air 04/14/23 07:43 Laboratory Results Short CBC 04/14/23 Range/Units 06:03 WBC 12.31 H (4.8-10.8) K/ul Hgb 9.8 L (12.0-16.0) g/dl Hct 32.9 L (37.0-47.0) % Plt Count 345 (130-400) K/uL BMP 04/14/23 06:03 Sodium 139 Potassium 4.3 Chloride 113 H Carbon Dioxide 19 L BUN 23 Creatinine 1.54 H Glucose 167 H Calcium 8.6 Medications Administered Current Inpatient Medications Amiodarone HCl (Amiodarone 200 Mg Tab) 200 mg PO DAILY JACKY Stop: 05/12/23 08:59 Last Admin: 04/14/23 09:07 Dose: 200 mg Amlodipine Besylate (Amlodipine Besylate 5 Mg Tab) 5 mg PO DAILY JACKY Stop: 05/12/23 08:59 Last Admin: 04/14/23 09:05 Dose: 5 mg Atorvastatin Calcium (Atorvastatin 40 Mg Tab) 80 mg PO DAILY JACKY Stop: 05/12/23 08:59 Last Admin: 04/14/23 09:05 Dose: 80 mg Dextrose (Dextrose 50% 50 Ml Syringe) 25 - 50 ml IV UD PRN; Protocol PRN Reason: Hypoglycemia Protocol Stop: 05/11/23 22:24 Duloxetine HCl (Duloxetine Hcl 20 Mg Cap) 20 mg PO DAILY JACKY Stop: 05/12/23 08:59 Last Admin: 04/14/23 09:07 Dose: 20 mg Enoxaparin Sodium (Enoxaparin Inj 30 Mg/0.3 Ml Syr) 30 mg SQ HS [facility] Stop: 05/13/23 20:59 Last Admin: 04/13/23 20:43 Dose: 30 mg Famotidine (Famotidine 40 Mg Tablet) 40 mg PO DAILY JACKY Stop: 05/12/23 08:59 Last Admin: 04/14/23 09:06 Dose: 40 mg Fidaxomicin (Fidaxomicin 200 Mg Tab) 200 mg PO BID JACKY Stop: 04/22/23 08:59 Last Admin: 04/14/23 09:04 Dose: 200 mg Glucagon (Glucagon For Inj 1 Mg Vial) 1 mg SQ UD PRN; Protocol PRN Reason: Hypoglycemia Protocol Stop: 05/11/23 22:24 Glucose (Glucose 10 Tab/Tube) 4 - 8 tab PO UD PRN; Protocol PRN Reason: Hypoglycemia Treatment Stop: 05/11/23 22:24 Last Admin: 04/13/23 04:27 Dose: 4 tab Glucose (Glucose 40% Gel 15 Gm Tube) 15 - 30 gm PO UD PRN; Protocol PRN Reason: Hypoglycemia Protocol Stop: 05/11/23 22:24 Hydromorphone HCl (Hydromorphone Inj 0.5 Mg/0.5 Ml Syr) 0.25 mg IV Q6H PRN PRN Reason: Pain Stop: 04/25/23 22:04 Last Admin: 04/12/23 10:29 Dose: 0.25 mg Promethazine HCl 6.25 mg/ (Sodium Chloride) 50.25 mls @ 201 mls/hr IV Q6H PRN PRN Reason: Nausea And Vomiting Stop: 05/11/23 22:04 Insulin Aspart (Insulin Aspart Per Unit Charge) 0 units SC ACHS [facility] Stop: 05/11/23 22:24 Last Admin: 04/14/23 13:44 Dose: 5 units Levothyroxine Sodium (Levothyroxine Sodium 25 Mcg Tablet) 25 mcg PO DAILYBB [facility] Stop: 05/12/23 06:29 Last Admin: 04/14/23 06:18 Dose: 25 mcg Metoprolol Succinate (Metoprolol Succ 25mg Ext Rel Tab) 25 mg PO BID [facility] Stop: 05/13/23 20:59 Last Admin: 04/14/23 09:06 Dose: 25 mg Miscellaneous (Fenofibrate 160 Mg - Order Awaiting Action) 1 each N/A QS [facility] Stop: 05/12/23 00:00 Last Admin: 04/14/23 15:14 Dose: Not Given Miscellaneous (Carbohydrates For Hypoglycemia ) 15 - 30 gm PO UD PRN PRN Reason: Hypoglycemia Protocol Stop: 05/11/23 22:24 Multivitamins (Multivitamin Tab) 1 tab PO DAILY [facility] Stop: 05/12/23 08:59 Last Admin: 04/14/23 09:06 Dose: 1 tab Nystatin (Nystatin Powder 15gm Btl) 1 appln EXT BID PRN PRN Reason: Affected Skin Folds Stop: 05/12/23 15:43 Tramadol HCl (Tramadol Hcl 50 Mg Tablet) 100 mg PO Q6H PRN PRN Reason: severe pain 7+ Stop: 05/13/23 17:59 Last Admin: 04/14/23 09:04 Dose: 100 mg
[2023-04-14] MEDS: MAGNESIUM SULFATE / D5W 1 GM/100 ML BAG IV SCH ×2 (18:16→20:31)
[2023-04-14] MEDS: ENOXAPARIN INJ 30 MG/0.3 ML SYR SQ SCH (20:32)
[2023-04-15] MEDS: traMADol HCL 50 MG TABLET PO PRN ×2 (05:24→20:52)
[2023-04-15] MEDS: LEVOTHYROXINE SODIUM 25 MCG TABLET PO SCH (05:25)
[2023-04-15 07:57] LABS: Basophils # (auto) 0.03 K/uL (0-0.2); Basophils % (auto) 0.3 %; Eosinophils # (auto) 0.32 K/uL (0-0.50); Eosinophils % (auto) 2.8 %; Hematocrit (blood only) 34.7 % (37.0-47.0); Hemoglobin 10.2 g/dl (12.0-16.0); Immature Granulocytes # (auto) 0.06 K/uL (0.01-0.20); Immature Granulocytes % (auto) 0.5 %; Lymphocytes # (auto) 0.89 K/uL (1.2-3.4); Lymphocytes % (auto) 7.9 %; Mean Corpuscular Hemoglobin 23.2 pg (25.0-34.0); Mean Corpuscular Hgb Conc 29.4 g/dL (32.0-36.0); Mean Platelet Volume 9.7 fL (9.4-12.4); Monocytes # (auto) 0.82 K/uL (0.11-0.59); Monocytes % (auto) 7.3 %; Neutrophils # (auto) 9.18 K/uL (1.40-6.50); Neutrophils % (auto) 81.2 %; Platelet Count 364 K/uL (130-400); RDW Coefficient of Variation 16.7 % (11.5-14.5); Red Blood Count 4.39 M/uL (4.20-5.40)
[2023-04-15 08:16] LABS: BUN Creatinine Ratio 13.6 (10-20); Calcium 8.8 mg/dl (8.6-10.3); Creatinine Clr Calc Pharmacy 32.9 ml/min; Est GFR (African American) 40.9 ml/min; Est GFR (Non-African American) 35.3 ml/min; Phosphorus 2.7 mg/dl (2.5-4.9); Potassium 4.3 mmol/L (3.5-5.1)
[2023-04-15] MEDS: INSULIN ASPART PER UNIT CHARGE SC SCH ×4 (09:34→20:40)
[2023-04-15] MEDS: DULoxetine HCL 20 MG CAP PO SCH (09:35)
[2023-04-15] MEDS: ATORVASTATIN 40 MG TAB PO SCH (09:35)
[2023-04-15] MEDS: FIDAXOMICIN 200 MG TAB PO SCH ×2 (09:35→20:59)
[2023-04-15] MEDS: FAMOTIDINE 40 MG TABLET PO SCH (09:35)
[2023-04-15] MEDS: MULTIVITAMIN TAB PO SCH (09:35)
[2023-04-15] MEDS: AMIODARONE 200 MG TAB PO SCH (09:35)
[2023-04-15] MEDS: METOPROLOL SUCC 25MG EXT REL TAB PO SCH ×2 (09:35→20:59)
[2023-04-15] MEDS: amLODIPine BESYLATE 5 MG TAB PO SCH (09:36)
--- NOTE | 2023-04-15 16:41 | Hospitalist Progress Note ---
Date of Service April 15, 2023 Assessment & Plan (1) Sepsis: Plan: 2/2 cdiff colitis (2) C. difficile colitis: Plan: Fidaxomicin, no evidence of active bleeding per GI. Excessive diarrhea, cont supportive care with Imodium (only one dose given), IVF and tramadol for crampy pain. She is borderline severe c-diff infection and will not change abx regimen. KUB showed borderline dilated gas-filled loops of large and small bowel with possible ileus but no obstruction We will continue current management And advance diet as tolerated Clinically much better but will require to be placed (3) Norovirus: Plan: acute, cont supportive care efforts. Contact precautions. (4) Anemia: Plan: chronic, stable. No overt blood loss at this time. (5) Metastatic carcinoma: Plan: Possible cervical cancer with metastasis to L4/L5 vertebra per oncology. She is undergoing XRT therapy with Dr. Steffanie Pineda which has been put on hold until after her discharge. No acute symptoms (6) Afib: Plan: Chronic, currently in afib. Cont amiodarone, Toprol per home regimen. We will start apixaban and discontinue Lovenox (7) CAD (coronary artery disease): Plan: chronic, stable. Cont medical management. (8) Depressive disorder: Plan: chronic, stable. Cont Duloxetine per home regimen. (9) Hypothyroidism: Plan: chronic, stable. Cont Synthroid per home regimen DVT proph-SCDs Full Code Dispo-awaiting placement Admission and Anticipated Discharge Date Admission Date: April 11, 2023 Subjective 04/14/2023 The patient was seen and examined in medical telemetry unit She has been complaining abdominal discomfort and KUB showed possible ileus Has been passing gas and abdomen remains soft Denies any other significant symptoms except weakness 04/15/2023 The patient was seen and examined in medical telemetry unit She has been a little better today but is still remains weak Has had PT evaluation and recommended rehab Review of Systems Review of Systems: All systems reviewed and are unremarkable except as noted below Physical Exam Physical Exam: Lying in bed comfortably Constitutional: well developed, well nourished, + ill appearing and average body habitus Eyes: PERRL, conjunctivae normal, anicteric sclerae ENMT: external ear and nose normal, oropharynx normal Neck: trachea midline, no thyromegaly Respiratory: no respiratory distress Auscultation: lungs clear to auscultation bilaterally Cardiovascular: Rate/Rhythm: regular rate and regular rhythm Heart Sounds: normal S1 and normal S2; no murmur Extremities: + edema (Trace edema bilaterally) Gastrointestinal (Abdomen): Inspection/Auscultation: normal bowel sounds; abdomen not distended Percussion/Palpation: abdomen soft; abdomen nontender Musculoskeletal: No acute arthritis involving any joint Neurologic: Alert, awake and oriented x3 Lymphatic: no cervical or axillary lymphadenopathy Results & Data Results & Data Vital Signs (Past 12 Hours) Vital Signs Temp Pulse Pulse Resp BP Pulse Ox O2 Del Method 04/15/23 14:00 114 H 04/15/23 10:57 36.6 C 112 H 20 142/96 H 93 Room Air 04/15/23 07:51 36.6 C 117 H 20 147/86 H 92 Room Air 04/15/23 06:00 118 H Laboratory Results Short CBC 04/15/23 Range/Units 07:07 WBC 11.30 H (4.8-10.8) K/ul Hgb 10.2 L (12.0-16.0) g/dl Hct 34.7 L (37.0-47.0) % Plt Count 364 (130-400) K/uL BMP 04/15/23 07:07 Sodium 136 Potassium 4.3 Chloride 109 H Carbon Dioxide 21 BUN 20 Creatinine 1.47 H Glucose 150 H Calcium 8.8 Medications Administered Current Inpatient Medications Amiodarone HCl (Amiodarone 200 Mg Tab) 200 mg PO DAILY JACKY Stop: 05/12/23 08:59 Last Admin: 04/15/23 09:35 Dose: 200 mg Amlodipine Besylate (Amlodipine Besylate 5 Mg Tab) 5 mg PO DAILY JACKY Stop: 05/12/23 08:59 Last Admin: 04/15/23 09:36 Dose: 5 mg Atorvastatin Calcium (Atorvastatin 40 Mg Tab) 80 mg PO DAILY JACKY Stop: 05/12/23 08:59 Last Admin: 04/15/23 09:35 Dose: 80 mg Dextrose (Dextrose 50% 50 Ml Syringe) 25 - 50 ml IV UD PRN; Protocol PRN Reason: Hypoglycemia Protocol Stop: 05/11/23 22:24 Duloxetine HCl (Duloxetine Hcl 20 Mg Cap) 20 mg PO DAILY JACKY Stop: 05/12/23 08:59 Last Admin: 04/15/23 09:35 Dose: 20 mg Enoxaparin Sodium (Enoxaparin Inj 30 Mg/0.3 Ml Syr) 30 mg SQ HS [facility] Stop: 05/13/23 20:59 Last Admin: 04/14/23 20:32 Dose: 30 mg Famotidine (Famotidine 40 Mg Tablet) 40 mg PO DAILY JACKY Stop: 05/12/23 08:59 Last Admin: 04/15/23 09:35 Dose: 40 mg Fidaxomicin (Fidaxomicin 200 Mg Tab) 200 mg PO BID JACKY Stop: 04/22/23 08:59 Last Admin: 04/15/23 09:35 Dose: 200 mg Glucagon (Glucagon For Inj 1 Mg Vial) 1 mg SQ UD PRN; Protocol PRN Reason: Hypoglycemia Protocol Stop: 05/11/23 22:24 Glucose (Glucose 10 Tab/Tube) 4 - 8 tab PO UD PRN; Protocol PRN Reason: Hypoglycemia Treatment Stop: 05/11/23 22:24 Last Admin: 04/13/23 04:27 Dose: 4 tab Glucose (Glucose 40% Gel 15 Gm Tube) 15 - 30 gm PO UD PRN; Protocol PRN Reason: Hypoglycemia Protocol Stop: 05/11/23 22:24 Hydromorphone HCl (Hydromorphone Inj 0.5 Mg/0.5 Ml Syr) 0.25 mg IV Q6H PRN PRN Reason: Pain Stop: 04/25/23 22:04 Last Admin: 04/12/23 10:29 Dose: 0.25 mg Promethazine HCl 6.25 mg/ (Sodium Chloride) 50.25 mls @ 201 mls/hr IV Q6H PRN PRN Reason: Nausea And Vomiting Stop: 05/11/23 22:04 Last Infusion: 04/15/23 06:31 Dose: Infused Insulin Aspart (Insulin Aspart Per Unit Charge) 0 units SC ACHS [facility] Stop: 05/11/23 22:24 Last Admin: 04/15/23 13:34 Dose: 3 units Levothyroxine Sodium (Levothyroxine Sodium 25 Mcg Tablet) 25 mcg PO DAILYBB [facility] Stop: 05/12/23 06:29 Last Admin: 04/15/23 05:25 Dose: 25 mcg Metoprolol Succinate (Metoprolol Succ 25mg Ext Rel Tab) 25 mg PO BID [facility] Stop: 05/13/23 20:59 Last Admin: 04/15/23 09:35 Dose: 25 mg Miscellaneous (Fenofibrate 160 Mg - Order Awaiting Action) 1 each N/A QS [facility] Stop: 05/12/23 00:00 Last Admin: 04/15/23 09:36 Dose: Not Given Miscellaneous (Carbohydrates For Hypoglycemia ) 15 - 30 gm PO UD PRN PRN Reason: Hypoglycemia Protocol Stop: 05/11/23 22:24 Multivitamins (Multivitamin Tab) 1 tab PO DAILY [facility] Stop: 05/12/23 08:59 Last Admin: 04/15/23 09:35 Dose: 1 tab Nystatin (Nystatin Powder 15gm Btl) 1 appln EXT BID PRN PRN Reason: Affected Skin Folds Stop: 05/12/23 15:43 Tramadol HCl (Tramadol Hcl 50 Mg Tablet) 100 mg PO Q6H PRN PRN Reason: severe pain 7+ Stop: 05/13/23 17:59 Last Admin: 04/15/23 05:24 Dose: 50 mg
[2023-04-15] MEDS: APIXABAN 5 MG TABLET PO SCH (21:26)
[2023-04-16] MEDS: LEVOTHYROXINE SODIUM 25 MCG TABLET PO SCH (05:42)
[2023-04-16] MEDS: traMADol HCL 50 MG TABLET PO PRN (06:09)
[2023-04-16 06:59] LABS: Basophils # (auto) 0.04 K/uL (0-0.2); Basophils % (auto) 0.3 %; Eosinophils # (auto) 0.67 K/uL (0-0.50); Eosinophils % (auto) 5.9 %; Hemoglobin 9.6 g/dl (12.0-16.0); Immature Granulocytes # (auto) 0.08 K/uL (0.01-0.20); Immature Granulocytes % (auto) 0.7 %; Lymphocytes # (auto) 1.13 K/uL (1.2-3.4); Lymphocytes % (auto) 9.9 %; Mean Corpuscular Hemoglobin 23.4 pg (25.0-34.0); Mean Corpuscular Volume 75.4 fL (80.0-100.0); Mean Platelet Volume 9.6 fL (9.4-12.4); Monocytes # (auto) 0.99 K/uL (0.11-0.59); Monocytes % (auto) 8.7 %; Neutrophils # (auto) 8.53 K/uL (1.40-6.50); Neutrophils % (auto) 74.5 %; Platelet Count 344 K/uL (130-400); RDW Coefficient of Variation 16.8 % (11.5-14.5); RDW Standard Deviation 46.3 fL (36.4-46.3); Red Blood Count 4.11 M/uL (4.20-5.40); White Blood Count 11.44 K/ul (4.8-10.8)
[2023-04-16 08:07] LABS: Calcium 8.6 mg/dl (8.6-10.3); Creatinine Clr Calc Pharmacy 33.9 ml/min; Est GFR (African American) 42.3 ml/min; Est GFR (Non-African American) 36.5 ml/min; Potassium 3.8 mmol/L (3.5-5.1)
[2023-04-16] MEDS: INSULIN ASPART PER UNIT CHARGE SC SCH ×4 (08:43→21:00)
[2023-04-16] MEDS: amLODIPine BESYLATE 5 MG TAB PO SCH (08:45)
[2023-04-16] MEDS: MULTIVITAMIN TAB PO SCH (08:45)
[2023-04-16] MEDS: FAMOTIDINE 40 MG TABLET PO SCH (08:45)
[2023-04-16] MEDS: ATORVASTATIN 40 MG TAB PO SCH (08:45)
[2023-04-16] MEDS: AMIODARONE 200 MG TAB PO SCH (08:45)
[2023-04-16] MEDS: DULoxetine HCL 20 MG CAP PO SCH (08:45)
[2023-04-16] MEDS: APIXABAN 5 MG TABLET PO SCH ×2 (08:46→21:33)
[2023-04-16] MEDS: METOPROLOL SUCC 25MG EXT REL TAB PO SCH (08:46)
[2023-04-16] MEDS: FENOFIBRATE PO SCH (08:47)
[2023-04-16] MEDS: FIDAXOMICIN 200 MG TAB PO SCH ×2 (10:00→21:38)
--- NOTE | 2023-04-16 14:24 | Hospitalist Progress Note ---
Date of Service April 16, 2023 Assessment & Plan (1) Sepsis: Plan: 2/2 cdiff colitis (2) C. difficile colitis: Plan: Fidaxomicin, no evidence of active bleeding per GI. Excessive diarrhea, cont supportive care with Imodium (only one dose given), IVF and tramadol for crampy pain. She is borderline severe c-diff infection and will not change abx regimen. KUB showed borderline dilated gas-filled loops of large and small bowel with possible ileus but no obstruction We will continue current management And advance diet as tolerated Has been tolerating regular diet and abdominal symptoms are reasonably controlled Awaiting placement (3) Norovirus: Plan: acute, cont supportive care efforts. Contact precautions. No more diarrhea (4) Anemia: Plan: chronic, stable. No overt blood loss at this time. (5) Metastatic carcinoma: Plan: Possible cervical cancer with metastasis to L4/L5 vertebra per oncology. She is undergoing XRT therapy with Dr. Steffanie Pineda which has been put on hold until after her discharge. No acute symptoms (6) Afib: Plan: Chronic, currently in afib. Cont amiodarone, Toprol per home regimen. We will start apixaban and discontinue Lovenox Heart rate remains elevated Will increase the dose of Toprol-XL to 50 mg twice daily and discontinue amlodipine (7) CAD (coronary artery disease): Plan: chronic, stable. Cont medical management. (8) Depressive disorder: Plan: chronic, stable. Cont Duloxetine per home regimen. (9) Hypothyroidism: Plan: chronic, stable. Cont Synthroid per home regimen DVT proph-SCDs Full Code Dispo-awaiting placement Admission and Anticipated Discharge Date Admission Date: April 11, 2023 Subjective 04/14/2023 The patient was seen and examined in medical telemetry unit She has been complaining abdominal discomfort and KUB showed possible ileus Has been passing gas and abdomen remains soft Denies any other significant symptoms except weakness 04/15/2023 The patient was seen and examined in medical telemetry unit She has been a little better today but is still remains weak Has had PT evaluation and recommended rehab 04/16/2023 The patient was seen and examined in medical telemetry unit She has been weak and complains minimal abdominal pain No nausea no vomiting and no distention of the abdomen Review of Systems Review of Systems: All systems reviewed and are unremarkable except as noted below Physical Exam Physical Exam: Lying in bed comfortably Constitutional: well developed, well nourished, + ill appearing and average body habitus Eyes: PERRL, conjunctivae normal, anicteric sclerae ENMT: external ear and nose normal, oropharynx normal Neck: trachea midline, no thyromegaly Respiratory: no respiratory distress Auscultation: lungs clear to auscultation bilaterally Cardiovascular: Rate/Rhythm: regular rate and regular rhythm Heart Sounds: normal S1 and normal S2; no murmur Extremities: + edema (Trace edema bilaterally) Gastrointestinal (Abdomen): Inspection/Auscultation: normal bowel sounds; abdomen not distended Percussion/Palpation: abdomen soft; abdomen nontender Musculoskeletal: No acute arthritis involving any joint Neurologic: Alert, awake and oriented x3. She has been generally weak and would need rehab placement Lymphatic: no cervical or axillary lymphadenopathy Results & Data Results & Data Vital Signs (Past 12 Hours) Vital Signs Temp Pulse Pulse Resp BP BP Pulse Ox 04/16/23 11:23 36.6 C 130 H 20 132/86 94 04/16/23 07:30 36.4 C L 118 H 17 151/79 H 93 04/16/23 03:37 36.9 C 113 H 16 147/85 H 91 04/16/23 03:31 112 H O2 Del Method 04/16/23 11:23 Room Air 04/16/23 07:30 Room Air 04/16/23 03:37 Room Air 04/16/23 03:31 Laboratory Results Short CBC 04/16/23 Range/Units 05:59 WBC 11.44 H (4.8-10.8) K/ul Hgb 9.6 L (12.0-16.0) g/dl Hct 31.0 L (37.0-47.0) % Plt Count 344 (130-400) K/uL BMP 04/16/23 05:59 Sodium 136 Potassium 3.8 Chloride 109 H Carbon Dioxide 19 L BUN 20 Creatinine 1.43 H Glucose 123 H Calcium 8.6 Medications Administered Current Inpatient Medications Amiodarone HCl (Amiodarone 200 Mg Tab) 200 mg PO DAILY JACKY Stop: 05/12/23 08:59 Last Admin: 04/16/23 08:45 Dose: 200 mg Amlodipine Besylate (Amlodipine Besylate 5 Mg Tab) 5 mg PO DAILY JACKY Stop: 05/12/23 08:59 Last Admin: 04/16/23 08:45 Dose: 5 mg Apixaban (Apixaban 5 Mg Tablet) 5 mg PO BID JACKY Stop: 05/15/23 20:59 Last Admin: 04/16/23 08:46 Dose: 5 mg Atorvastatin Calcium (Atorvastatin 40 Mg Tab) 80 mg PO DAILY JACKY Stop: 05/12/23 08:59 Last Admin: 04/16/23 08:45 Dose: 80 mg Dextrose (Dextrose 50% 50 Ml Syringe) 25 - 50 ml IV UD PRN; Protocol PRN Reason: Hypoglycemia Protocol Stop: 05/11/23 22:24 Duloxetine HCl (Duloxetine Hcl 20 Mg Cap) 20 mg PO DAILY JACKY Stop: 05/12/23 08:59 Last Admin: 04/16/23 08:45 Dose: 20 mg Famotidine (Famotidine 40 Mg Tablet) 40 mg PO DAILY JACKY Stop: 05/12/23 08:59 Last Admin: 04/16/23 08:45 Dose: 40 mg Fenofibrate (Fenofibrate) 1 each PO DAILY JACKY Stop: 05/16/23 08:59 Last Admin: 04/16/23 08:47 Dose: 1 each Fidaxomicin (Fidaxomicin 200 Mg Tab) 200 mg PO BID JACKY Stop: 04/22/23 08:59 Last Admin: 04/16/23 10:00 Dose: 200 mg Glucagon (Glucagon For Inj 1 Mg Vial) 1 mg SQ UD PRN; Protocol PRN Reason: Hypoglycemia Protocol Stop: 05/11/23 22:24 Glucose (Glucose 10 Tab/Tube) 4 - 8 tab PO UD PRN; Protocol PRN Reason: Hypoglycemia Treatment Stop: 05/11/23 22:24 Last Admin: 04/13/23 04:27 Dose: 4 tab Glucose (Glucose 40% Gel 15 Gm Tube) 15 - 30 gm PO UD PRN; Protocol PRN Reason: Hypoglycemia Protocol Stop: 05/11/23 22:24 Hydromorphone HCl (Hydromorphone Inj 0.5 Mg/0.5 Ml Syr) 0.25 mg IV Q6H PRN PRN Reason: Pain Stop: 04/25/23 22:04 Last Admin: 04/12/23 10:29 Dose: 0.25 mg Promethazine HCl 6.25 mg/ (Sodium Chloride) 50.25 mls @ 201 mls/hr IV Q6H PRN PRN Reason: Nausea And Vomiting Stop: 05/11/23 22:04 Last Infusion: 04/15/23 06:31 Dose: Infused Insulin Aspart (Insulin Aspart Per Unit Charge) 0 units SC ACHS [facility] Stop: 05/11/23 22:24 Last Admin: 04/16/23 13:30 Dose: 5 units Levothyroxine Sodium (Levothyroxine Sodium 25 Mcg Tablet) 25 mcg PO DAILYBB [facility] Stop: 05/12/23 06:29 Last Admin: 04/16/23 05:42 Dose: 25 mcg Metoprolol Succinate (Metoprolol Succ 25mg Ext Rel Tab) 25 mg PO BID [facility] Stop: 05/13/23 20:59 Last Admin: 04/16/23 08:46 Dose: 25 mg Miscellaneous (Carbohydrates For Hypoglycemia ) 15 - 30 gm PO UD PRN PRN Reason: Hypoglycemia Protocol Stop: 05/11/23 22:24 Multivitamins (Multivitamin Tab) 1 tab PO DAILY [facility] Stop: 05/12/23 08:59 Last Admin: 04/16/23 08:45 Dose: 1 tab Nystatin (Nystatin Powder 15gm Btl) 1 appln EXT BID PRN PRN Reason: Affected Skin Folds Stop: 05/12/23 15:43 Tramadol HCl (Tramadol Hcl 50 Mg Tablet) 100 mg PO Q6H PRN PRN Reason: severe pain 7+ Stop: 05/13/23 17:59 Last Admin: 04/16/23 06:09 Dose: 100 mg
[2023-04-16] MEDS: METOPROLOL SUCC 50MG EXT REL TAB PO SCH (21:33)
[2023-04-16] MEDS: HYDROmorphone INJ 0.5 MG/0.5 ML SYR IV PRN (21:40)
[2023-04-17] MEDS: LEVOTHYROXINE SODIUM 25 MCG TABLET PO SCH (06:06)
[2023-04-17] MEDS: METOPROLOL SUCC 50MG EXT REL TAB PO SCH ×2 (08:08→21:36)
[2023-04-17] MEDS: FAMOTIDINE 40 MG TABLET PO SCH (08:08)
[2023-04-17] MEDS: DULoxetine HCL 20 MG CAP PO SCH (08:08)
[2023-04-17] MEDS: APIXABAN 5 MG TABLET PO SCH ×2 (08:08→21:36)
[2023-04-17] MEDS: MULTIVITAMIN TAB PO SCH (08:08)
[2023-04-17] MEDS: ATORVASTATIN 40 MG TAB PO SCH (08:08)
[2023-04-17] MEDS: FENOFIBRATE PO SCH (08:09)
[2023-04-17] MEDS: INSULIN ASPART PER UNIT CHARGE SC SCH ×4 (08:20→21:36)
[2023-04-17] MEDS: FIDAXOMICIN 200 MG TAB PO SCH ×2 (08:28→21:36)
[2023-04-17 08:38] LABS: Basophils # (auto) 0.06 K/uL (0-0.2); Basophils % (auto) 0.6 %; Eosinophils # (auto) 0.63 K/uL (0-0.50); Eosinophils % (auto) 5.9 %; Hematocrit (blood only) 33.1 % (37.0-47.0); Immature Granulocytes # (auto) 0.07 K/uL (0.01-0.20); Immature Granulocytes % (auto) 0.7 %; Lymphocytes # (auto) 0.93 K/uL (1.2-3.4); Lymphocytes % (auto) 8.8 %; Mean Corpuscular Hemoglobin 23.2 pg (25.0-34.0); Mean Corpuscular Hgb Conc 30.2 g/dL (32.0-36.0); Mean Corpuscular Volume 76.8 fL (80.0-100.0); Mean Platelet Volume 9.9 fL (9.4-12.4); Monocytes # (auto) 0.85 K/uL (0.11-0.59); Neutrophils # (auto) 8.08 K/uL (1.40-6.50); Platelet Count 366 K/uL (130-400); RDW Coefficient of Variation 16.6 % (11.5-14.5); RDW Standard Deviation 46.2 fL (36.4-46.3); Red Blood Count 4.31 M/uL (4.20-5.40); White Blood Count 10.62 K/ul (4.8-10.8)
[2023-04-17 08:47] LABS: BUN Creatinine Ratio 14.9 (10-20); Calcium 8.6 mg/dl (8.6-10.3); Creatinine Clr Calc Pharmacy 33.5 ml/min; Est GFR (Non-African American) 37.1 ml/min; Magnesium 1.7 mg/dl (1.7-2.4); Potassium 3.7 mmol/L (3.5-5.1)
[2023-04-17] MEDS: AMIODARONE 200 MG TAB PO SCH (10:18)
[2023-04-17] MEDS ORDERED: LOPERAMIDE HCL 2 MG CAP PO PRN (13:09)
--- NOTE | 2023-04-17 13:09 | Hospitalist Progress Note ---
Date of Service April 17, 2023 Assessment & Plan (1) Sepsis: Plan: 2/2 cdiff colitis (2) C. difficile colitis: Plan: Fidaxomicin, no evidence of active bleeding per GI. Excessive diarrhea, cont supportive care with Imodium (only one dose given), IVF and tramadol for crampy pain. She is borderline severe c-diff infection and will not change abx regimen. KUB showed borderline dilated gas-filled loops of large and small bowel with possible ileus but no obstruction We will continue current management And advance diet as tolerated Has been tolerating regular diet and abdominal symptoms are reasonably controlled Has been having occasional diarrhea but otherwise asymptomatic Will try Imodium (3) Norovirus: Plan: acute, cont supportive care efforts. Contact precautions. No more diarrhea (4) Anemia: Plan: chronic, stable. No overt blood loss at this time. (5) Metastatic carcinoma: Plan: Possible cervical cancer with metastasis to L4/L5 vertebra per oncology. She is undergoing XRT therapy with Dr. Steffanie Pineda which has been put on hold until after her discharge. No acute symptoms (6) Afib: Plan: Chronic, currently in afib. Cont amiodarone, Toprol per home regimen. We will start apixaban and discontinue Lovenox Heart rate remains elevated Will increase the dose of Toprol-XL to 50 mg twice daily and discontinue amlodipine Rate is still high at 105 (7) CAD (coronary artery disease): Plan: chronic, stable. Cont medical management. (8) Depressive disorder: Plan: chronic, stable. Cont Duloxetine per home regimen. (9) Hypothyroidism: Plan: chronic, stable. Cont Synthroid per home regimen DVT proph-SCDs Full Code Dispo-awaiting placement Admission and Anticipated Discharge Date Admission Date: April 11, 2023 Subjective 04/14/2023 The patient was seen and examined in medical telemetry unit She has been complaining abdominal discomfort and KUB showed possible ileus Has been passing gas and abdomen remains soft Denies any other significant symptoms except weakness 04/15/2023 The patient was seen and examined in medical telemetry unit She has been a little better today but is still remains weak Has had PT evaluation and recommended rehab 04/16/2023 The patient was seen and examined in medical telemetry unit She has been weak and complains minimal abdominal pain No nausea no vomiting and no distention of the abdomen 04/17/2023 The patient was seen and examined in medical telemetry unit She has been stable and complains of occasional diarrhea and headache Otherwise denies any significant symptoms and awaiting placement Review of Systems Review of Systems: All systems reviewed and are unremarkable except as noted below Physical Exam Physical Exam: Lying in bed comfortably Constitutional: well developed, well nourished, + ill appearing and average body habitus Eyes: PERRL, conjunctivae normal, anicteric sclerae ENMT: external ear and nose normal, oropharynx normal Neck: trachea midline, no thyromegaly Respiratory: no respiratory distress Auscultation: lungs clear to auscultation bilaterally Cardiovascular: Rate/Rhythm: regular rate and regular rhythm Heart Sounds: normal S1 and normal S2; no murmur Extremities: + edema (Trace edema bilaterally) Gastrointestinal (Abdomen): Inspection/Auscultation: normal bowel sounds; abdomen not distended Percussion/Palpation: abdomen soft; abdomen nontender Neurologic: normal touch/pain/proprioception and moves all extremities; no focal motor deficits Lymphatic: no cervical or axillary lymphadenopathy Results & Data Results & Data Vital Signs (Past 12 Hours) Vital Signs Temp Pulse Pulse Resp BP BP Pulse Ox 04/17/23 11:21 36.7 C 105 H 16 151/97 H 97 04/17/23 07:31 105 H 04/17/23 07:29 36.5 C 107 H 18 158/98 H 95 04/17/23 04:00 36.4 C L 106 H 18 149/89 H 94 O2 Del Method 04/17/23 11:21 Room Air 04/17/23 07:31 04/17/23 07:29 Room Air 04/17/23 04:00 Room Air Laboratory Results Short CBC 04/17/23 Range/Units 07:20 WBC 10.62 (4.8-10.8) K/ul Hgb 10.0 L (12.0-16.0) g/dl Hct 33.1 L (37.0-47.0) % Plt Count 366 (130-400) K/uL BMP 04/17/23 07:20 Sodium 135 L Potassium 3.7 Chloride 107 Carbon Dioxide 22 BUN 21 Creatinine 1.41 H Glucose 121 H Calcium 8.6 Medications Administered Current Inpatient Medications Amiodarone HCl (Amiodarone 200 Mg Tab) 200 mg PO DAILY JACKY Stop: 05/12/23 08:59 Last Admin: 04/17/23 10:18 Dose: 200 mg Apixaban (Apixaban 5 Mg Tablet) 5 mg PO BID JACKY Stop: 05/15/23 20:59 Last Admin: 04/17/23 08:08 Dose: 5 mg Atorvastatin Calcium (Atorvastatin 40 Mg Tab) 80 mg PO DAILY JACKY Stop: 05/12/23 08:59 Last Admin: 04/17/23 08:08 Dose: 80 mg Dextrose (Dextrose 50% 50 Ml Syringe) 25 - 50 ml IV UD PRN; Protocol PRN Reason: Hypoglycemia Protocol Stop: 05/11/23 22:24 Duloxetine HCl (Duloxetine Hcl 20 Mg Cap) 20 mg PO DAILY JACKY Stop: 05/12/23 08:59 Last Admin: 04/17/23 08:08 Dose: 20 mg Famotidine (Famotidine 40 Mg Tablet) 40 mg PO DAILY JACKY Stop: 05/12/23 08:59 Last Admin: 04/17/23 08:08 Dose: 40 mg Fenofibrate (Fenofibrate) 1 each PO DAILY JACKY Stop: 05/16/23 08:59 Last Admin: 04/17/23 08:09 Dose: 1 each Fidaxomicin (Fidaxomicin 200 Mg Tab) 200 mg PO BID JACKY Stop: 04/22/23 08:59 Last Admin: 04/17/23 08:28 Dose: 200 mg Glucagon (Glucagon For Inj 1 Mg Vial) 1 mg SQ UD PRN; Protocol PRN Reason: Hypoglycemia Protocol Stop: 05/11/23 22:24 Glucose (Glucose 10 Tab/Tube) 4 - 8 tab PO UD PRN; Protocol PRN Reason: Hypoglycemia Treatment Stop: 05/11/23 22:24 Last Admin: 04/13/23 04:27 Dose: 4 tab Glucose (Glucose 40% Gel 15 Gm Tube) 15 - 30 gm PO UD PRN; Protocol PRN Reason: Hypoglycemia Protocol Stop: 05/11/23 22:24 Hydromorphone HCl (Hydromorphone Inj 0.5 Mg/0.5 Ml Syr) 0.25 mg IV Q6H PRN PRN Reason: Pain Stop: 04/25/23 22:04 Last Admin: 04/16/23 21:40 Dose: 0.25 mg Promethazine HCl 6.25 mg/ (Sodium Chloride) 50.25 mls @ 201 mls/hr IV Q6H PRN PRN Reason: Nausea And Vomiting Stop: 05/11/23 22:04 Last Infusion: 04/15/23 06:31 Dose: Infused Insulin Aspart (Insulin Aspart Per Unit Charge) 0 units SC ACHS [facility] Stop: 05/11/23 22:24 Last Admin: 04/17/23 08:20 Dose: Not Given Levothyroxine Sodium (Levothyroxine Sodium 25 Mcg Tablet) 25 mcg PO DAILYBB [facility] Stop: 05/12/23 06:29 Last Admin: 04/17/23 06:06 Dose: 25 mcg Metoprolol Succinate (Metoprolol Succ 50mg Ext Rel Tab) 50 mg PO BID [facility] Stop: 05/16/23 20:59 Last Admin: 04/17/23 08:08 Dose: 50 mg Miscellaneous (Carbohydrates For Hypoglycemia ) 15 - 30 gm PO UD PRN PRN Reason: Hypoglycemia Protocol Stop: 05/11/23 22:24 Multivitamins (Multivitamin Tab) 1 tab PO DAILY [facility] Stop: 05/12/23 08:59 Last Admin: 04/17/23 08:08 Dose: 1 tab Nystatin (Nystatin Powder 15gm Btl) 1 appln EXT BID PRN PRN Reason: Affected Skin Folds Stop: 05/12/23 15:43 Tramadol HCl (Tramadol Hcl 50 Mg Tablet) 100 mg PO Q6H PRN PRN Reason: severe pain 7+ Stop: 05/13/23 17:59 Last Admin: 04/16/23 06:09 Dose: 100 mg
[2023-04-17] MEDS: HYDROmorphone INJ 0.5 MG/0.5 ML SYR IV PRN (21:37)
[2023-04-18] MEDS: LEVOTHYROXINE SODIUM 25 MCG TABLET PO SCH (05:56)
[2023-04-18] MEDS: ACETAMINOPHEN 325 MG TAB PO PRN (06:07)
[2023-04-18 08:28] LABS: Creatinine Clr Calc Pharmacy 32.8 ml/min; Est GFR (African American) 41.9 ml/min; Est GFR (Non-African American) 36.2 ml/min
[2023-04-18] MEDS: INSULIN ASPART PER UNIT CHARGE SC SCH ×4 (09:27→20:56)
[2023-04-18] MEDS: FAMOTIDINE 40 MG TABLET PO SCH (11:00)
[2023-04-18] MEDS: APIXABAN 5 MG TABLET PO SCH ×2 (11:00→20:43)
[2023-04-18] MEDS: MULTIVITAMIN TAB PO SCH (11:00)
[2023-04-18] MEDS: FENOFIBRATE PO SCH (11:00)
[2023-04-18] MEDS: FIDAXOMICIN 200 MG TAB PO SCH ×2 (11:00→20:49)
[2023-04-18] MEDS: METOPROLOL SUCC 50MG EXT REL TAB PO SCH ×2 (11:00→20:42)
[2023-04-18] MEDS: ATORVASTATIN 40 MG TAB PO SCH (11:00)
[2023-04-18] MEDS: AMIODARONE 200 MG TAB PO SCH (11:00)
[2023-04-18] MEDS: DULoxetine HCL 20 MG CAP PO SCH (12:18)
--- NOTE | 2023-04-18 13:03 | Hospitalist Progress Note ---
Date of Service April 18, 2023 Assessment & Plan (1) Sepsis: Plan: 2/2 cdiff colitis (2) C. difficile colitis: Plan: Fidaxomicin, no evidence of active bleeding per GI. Excessive diarrhea, cont supportive care with Imodium (only one dose given), IVF and tramadol for crampy pain. She is borderline severe c-diff infection and will not change abx regimen. KUB showed borderline dilated gas-filled loops of large and small bowel with possible ileus but no obstruction We will continue current management And advance diet as tolerated Has been tolerating regular diet and abdominal symptoms are reasonably controlled Has been having occasional diarrhea but otherwise asymptomatic Still having diarrhea but did not get any Imodium Discussed with nurse to provide Imodium as ordered Denies any other abdominal symptoms and she will be discharged tomorrow if accepted to facility (3) Norovirus: Plan: acute, cont supportive care efforts. Contact precautions. No more diarrhea (4) Anemia: Plan: chronic, stable. No overt blood loss at this time. (5) Metastatic carcinoma: Plan: Possible cervical cancer with metastasis to L4/L5 vertebra per oncology. She is undergoing XRT therapy with Dr. Steffanie Pineda which has been put on hold until after her discharge. No acute symptoms (6) Afib: Plan: Chronic, currently in afib. Cont amiodarone, Toprol per home regimen. We will start apixaban and discontinue Lovenox Heart rate remains elevated Will increase the dose of Toprol-XL to 50 mg twice daily and discontinue amlodipine Rate is controlled at 88/min (7) CAD (coronary artery disease): Plan: chronic, stable. Cont medical management. (8) Depressive disorder: Plan: chronic, stable. Cont Duloxetine per home regimen. (9) Hypothyroidism: Plan: chronic, stable. Cont Synthroid per home regimen DVT proph-SCDs Full Code Dispo-awaiting placement Admission and Anticipated Discharge Date Admission Date: April 11, 2023 Subjective 04/14/2023 The patient was seen and examined in medical telemetry unit She has been complaining abdominal discomfort and KUB showed possible ileus Has been passing gas and abdomen remains soft Denies any other significant symptoms except weakness 04/15/2023 The patient was seen and examined in medical telemetry unit She has been a little better today but is still remains weak Has had PT evaluation and recommended rehab 04/16/2023 The patient was seen and examined in medical telemetry unit She has been weak and complains minimal abdominal pain No nausea no vomiting and no distention of the abdomen 04/17/2023 The patient was seen and examined in medical telemetry unit She has been stable and complains of occasional diarrhea and headache Otherwise denies any significant symptoms and awaiting placement 04/18/2023 The patient was seen and examined in medical telemetry unit She has been stable and awaiting placement Still has some diarrhea but did not receive any Imodium Review of Systems Review of Systems: All systems reviewed and are unremarkable except as noted below Physical Exam Physical Exam: Lying in bed comfortably Constitutional: well developed, well nourished, + ill appearing and average body habitus Eyes: PERRL, conjunctivae normal, anicteric sclerae ENMT: external ear and nose normal, oropharynx normal Neck: trachea midline, no thyromegaly Respiratory: no respiratory distress Auscultation: lungs clear to auscultation bilaterally Cardiovascular: Rate/Rhythm: regular rate and regular rhythm Heart Sounds: normal S1 and normal S2; no murmur Extremities: + edema (Trace edema bilaterally) Gastrointestinal (Abdomen): Inspection/Auscultation: normal bowel sounds; a bdomen not distended Percussion/Palpation: abdomen soft; abdomen nontender Neurologic: normal touch/pain/proprioception and moves all extremities; no focal motor deficits Lymphatic: no cervical or axillary lymphadenopathy Results & Data Results & Data Vital Signs (Past 12 Hours) Vital Signs Temp Pulse Resp BP Pulse Ox O2 Del Method 04/18/23 07:27 36.5 C 88 18 142/89 H 98 Room Air 04/18/23 04:22 36.6 C 90 20 141/83 H 97 Room Air Laboratory Results [facility] 04/18/23 07:15 Creatinine 1.44 H Medications Administered Current Inpatient Medications Acetaminophen (Acetaminophen 325 Mg Tab) 650 mg PO Q4H PRN PRN Reason: Headache Stop: 05/17/23 13:10 Last Admin: 04/18/23 06:07 Dose: 650 mg Amiodarone HCl (Amiodarone 200 Mg Tab) 200 mg PO DAILY JACKY Stop: 05/12/23 08:59 Last Admin: 04/18/23 11:00 Dose: 200 mg Apixaban (Apixaban 5 Mg Tablet) 5 mg PO BID JACKY Stop: 05/15/23 20:59 Last Admin: 04/18/23 11:00 Dose: 5 mg Atorvastatin Calcium (Atorvastatin 40 Mg Tab) 80 mg PO DAILY JACKY Stop: 05/12/23 08:59 Last Admin: 04/18/23 11:00 Dose: 80 mg Dextrose (Dextrose 50% 50 Ml Syringe) 25 - 50 ml IV UD PRN; Protocol PRN Reason: Hypoglycemia Protocol Stop: 05/11/23 22:24 Duloxetine HCl (Duloxetine Hcl 20 Mg Cap) 20 mg PO DAILY JACKY Stop: 05/12/23 08:59 Last Admin: 04/18/23 12:18 Dose: 20 mg Famotidine (Famotidine 40 Mg Tablet) 40 mg PO DAILY JACKY Stop: 05/12/23 08:59 Last Admin: 04/18/23 11:00 Dose: 40 mg Fenofibrate (Fenofibrate) 1 each PO DAILY JACKY Stop: 05/16/23 08:59 Last Admin: 04/18/23 11:00 Dose: 1 each Fidaxomicin (Fidaxomicin 200 Mg Tab) 200 mg PO BID JACKY Stop: 04/22/23 08:59 Last Admin: 04/17/23 21:36 Dose: 200 mg Glucagon (Glucagon For Inj 1 Mg Vial) 1 mg SQ UD PRN; Protocol PRN Reason: Hypoglycemia Protocol Stop: 05/11/23 22:24 Glucose (Glucose 10 Tab/Tube) 4 - 8 tab PO UD PRN; Protocol PRN Reason: Hypoglycemia Treatment Stop: 05/11/23 22:24 Last Admin: 04/13/23 04:27 Dose: 4 tab Glucose (Glucose 40% Gel 15 Gm Tube) 15 - 30 gm PO UD PRN; Protocol PRN Reason: Hypoglycemia Protocol Stop: 05/11/23 22:24 Hydromorphone HCl (Hydromorphone Inj 0.5 Mg/0.5 Ml Syr) 0.25 mg IV Q6H PRN PRN Reason: Pain Stop: 04/25/23 22:04 Last Admin: 04/17/23 21:37 Dose: 0.25 mg Promethazine HCl 6.25 mg/ (Sodium Chloride) 50.25 mls @ 201 mls/hr IV Q6H PRN PRN Reason: Nausea And Vomiting Stop: 05/11/23 22:04 Last Infusion: 08/17/23 06:31 Dose: Infused Insulin Aspart (Insulin Aspart Per Unit Charge) 0 units SC [facility] Stop: 05/11/23 22:24 Last Admin: 04/18/23 09:27 Dose: Not Given Levothyroxine Sodium (Levothyroxine Sodium 25 Mcg Tablet) 25 mcg PO DAILYBB [facility] Stop: 05/12/23 06:29 Last Admin: 04/18/23 05:56 Dose: 25 mcg Loperamide HCl (Loperamide Hcl 2 Mg Cap) 2 mg PO UD PRN PRN Reason: Diarrhea Stop: 05/17/23 13:08 Metoprolol Succinate (Metoprolol Succ 50mg Ext Rel Tab) 50 mg PO BID [facility] Stop: 05/16/23 20:59 Last Admin: 04/18/23 11:00 Dose: 50 mg Miscellaneous (Carbohydrates For Hypoglycemia ) 15 - 30 gm PO UD PRN PRN Reason: Hypoglycemia Protocol Stop: 05/11/23 22:24 Multivitamins (Multivitamin Tab) 1 tab PO DAILY [facility] Stop: 05/12/23 08:59 Last Admin: 04/18/23 11:00 Dose: 1 tab Nystatin (Nystatin Powder 15gm Btl) 1 appln EXT BID PRN PRN Reason: Affected Skin Folds Stop: 05/12/23 15:43 Tramadol HCl (Tramadol Hcl 50 Mg Tablet) 100 mg PO Q6H PRN PRN Reason: severe pain 7+ Stop: 05/13/23 17:59 Last Admin: 04/16/23 06:09 Dose: 100 mg
[2023-04-19] MEDS: traMADol HCL 50 MG TABLET PO PRN (01:12)
[2023-04-19] MEDS: LEVOTHYROXINE SODIUM 25 MCG TABLET PO SCH (06:23)
[2023-04-19] MEDS: ACETAMINOPHEN 325 MG TAB PO PRN (06:25)
[2023-04-19] MEDS: ATORVASTATIN 40 MG TAB PO SCH (08:26)
[2023-04-19] MEDS: DULoxetine HCL 20 MG CAP PO SCH (08:27)
[2023-04-19] MEDS: MULTIVITAMIN TAB PO SCH (08:27)
[2023-04-19] MEDS: AMIODARONE 200 MG TAB PO SCH (08:27)
[2023-04-19] MEDS: FAMOTIDINE 40 MG TABLET PO SCH (08:27)
[2023-04-19] MEDS: APIXABAN 5 MG TABLET PO SCH ×2 (08:28→20:43)
[2023-04-19] MEDS: METOPROLOL SUCC 50MG EXT REL TAB PO SCH ×2 (08:28→20:43)
[2023-04-19] MEDS: FENOFIBRATE PO SCH (08:28)
[2023-04-19] MEDS: INSULIN ASPART PER UNIT CHARGE SC SCH ×4 (08:29→20:43)
[2023-04-19] MEDS: FIDAXOMICIN 200 MG TAB PO SCH ×2 (08:36→20:47)
--- NOTE | 2023-04-19 16:58 | Hospitalist Progress Note ---
Date of Service April 19, 2023 Assessment & Plan (1) Sepsis: Plan: 2/2 cdiff colitis (2) C. difficile colitis: Plan: Fidaxomicin, no evidence of active bleeding per GI. Excessive diarrhea, cont supportive care with Imodium (only one dose given), IVF and tramadol for crampy pain. She is borderline severe c-diff infection and will not change abx regimen. KUB showed borderline dilated gas-filled loops of large and small bowel with possible ileus but no obstruction We will continue current management And advance diet as tolerated Has been tolerating regular diet and abdominal symptoms are reasonably controlled Has been having occasional diarrhea but otherwise asymptomatic Still having diarrhea but did not get any Imodium Discussed with nurse to provide Imodium as ordered Denies any other abdominal symptoms and she will be discharged tomorrow if accepted to facility Diarrhea is reasonably controlled Awaiting placement to go to a facility-likely transfer tomorrow (3) Norovirus: Plan: acute, cont supportive care efforts. Contact precautions. Requiring occasional Imodium to control diarrhea (4) Anemia: Plan: chronic, stable. No overt blood loss at this time. (5) Metastatic carcinoma: Plan: Possible cervical cancer with metastasis to L4/L5 vertebra per oncology. She is undergoing XRT therapy with Dr. Steffanie Pineda which has been put on hold until after her discharge. No acute symptoms (6) Afib: Plan: Chronic, currently in afib. Cont amiodarone, Toprol per home regimen. We will start apixaban and discontinue Lovenox Heart rate remains elevated Will increase the dose of Toprol-XL to 50 mg twice daily and discontinue amlodipine Rate is controlled at 88/min (7) CAD (coronary artery disease): Plan: chronic, stable. Cont medical management. (8) Depressive disorder: Plan: chronic, stable. Cont Duloxetine per home regimen. (9) Hypothyroidism: Plan: chronic, stable. Cont Synthroid per home regimen DVT proph-SCDs Full Code Dispo-awaiting placement Admission and Anticipated Discharge Date Admission Date: April 11, 2023 Subjective 04/14/2023 The patient was seen and examined in medical telemetry unit She has been complaining abdominal discomfort and KUB showed possible ileus Has been passing gas and abdomen remains soft Denies any other significant symptoms except weakness 04/15/2023 The patient was seen and examined in medical telemetry unit She has been a little better today but is still remains weak Has had PT evaluation and recommended rehab 04/16/2023 The patient was seen and examined in medical telemetry unit She has been weak and complains minimal abdominal pain No nausea no vomiting and no distention of the abdomen 04/17/2023 The patient was seen and examined in medical telemetry unit She has been stable and complains of occasional diarrhea and headache Otherwise denies any significant symptoms and awaiting placement 04/18/2023 The patient was seen and examined in medical telemetry unit She has been stable and awaiting placement Still has some diarrhea but did not receive any Imodium 04/19/2023 The patient was seen and examined in medical telemetry unit She has been stable and having minimal diarrhea Denies abdominal pain, nausea and or vomiting Review of Systems Review of Systems: All systems reviewed and are unremarkable except as noted below Physical Exam Physical Exam: Lying in bed comfortably Constitutional: well developed, well nourished, + ill appearing and average body habitus Eyes: PERRL, conjunctivae normal, anicteric sclerae ENMT: external ear and nose normal, oropharynx normal Neck: trachea midline, no thyromegaly Respiratory: no respiratory distress Auscultation: lungs clear to auscultation bilaterally Cardiovascular: Rate/Rhythm: regular rate and regular rhythm Heart Sounds: normal S1 and normal S2; no murmur Extremities: + edema (Trace edema bilaterally) Gastrointestinal (Abdomen): Inspection/Auscultation: normal bowel sounds; abdomen not distended Percussion/Palpation: abdomen soft; abdomen nontender Neurologic: normal touch/pain/proprioception and moves all extremities; no focal motor deficits Lymphatic: no cervical or axillary lymphadenopathy Results & Data Results & Data Vital Signs (Past 12 Hours) Vital Signs Temp Pulse Pulse Resp BP BP Pulse Ox 04/19/23 16:26 36.3 C L 93 H 18 141/81 H 98 04/19/23 16:20 93 H 04/19/23 11:40 36.5 C 103 H 19 135/85 100 04/19/23 07:54 36.6 C 91 H 18 157/83 H 97 04/19/23 07:34 96 H O2 Del Method 04/19/23 16:26 Room Air 04/19/23 16:20 04/19/23 11:40 Room Air 04/19/23 07:54 Room Air 04/19/23 07:34 Medications Administered Current Inpatient Medications Acetaminophen (Acetaminophen 325 Mg Tab) 650 mg PO Q4H PRN PRN Reason: Headache Stop: 05/17/23 13:10 Last Admin: 04/19/23 06:25 Dose: 650 mg Amiodarone HCl (Amiodarone 200 Mg Tab) 200 mg PO DAILY JACKY Stop: 05/12/23 08:59 Last Admin: 04/19/23 08:27 Dose: 200 mg Apixaban (Apixaban 5 Mg Tablet) 5 mg PO BID JACKY Stop: 05/15/23 20:59 Last Admin: 04/19/23 08:28 Dose: 5 mg Atorvastatin Calcium (Atorvastatin 40 Mg Tab) 80 mg PO DAILY JACKY Stop: 05/12/23 08:59 Last Admin: 04/19/23 08:26 Dose: 80 mg Dextrose (Dextrose 50% 50 Ml Syringe) 25 - 50 ml IV UD PRN; Protocol PRN Reason: Hypoglycemia Protocol Stop: 05/11/23 22:24 Duloxetine HCl (Duloxetine Hcl 20 Mg Cap) 20 mg PO DAILY JACKY Stop: 05/12/23 08:59 Last Admin: 04/19/23 08:27 Dose: 20 mg Famotidine (Famotidine 40 Mg Tablet) 40 mg PO DAILY JACK[facility] Stop: 05/12/23 08:59 Last Admin: 04/19/23 08:27 Dose: 40 mg Fenofibrate (Fenofibrate) 1 each PO DAILY JACKY Stop: 05/16/23 08:59 Last Admin: 04/19/23 08:28 Dose: 1 each Fidaxomicin (Fidaxomicin 200 Mg Tab) 200 mg PO BID JACKY Stop: 04/22/23 08:59 Last Admin: 04/19/23 08:36 Dose: 200 mg Glucagon (Glucagon For Inj 1 Mg Vial) 1 mg SQ UD PRN; Protocol PRN Reason: Hypoglycemia Protocol Stop: 05/11/23 22:24 Glucose (Glucose 10 Tab/Tube) 4 - 8 tab PO UD PRN; Protocol PRN Reason: Hypoglycemia Treatment Stop: 05/11/23 22:24 Last Admin: 04/13/23 04:27 Dose: 4 tab Glucose (Glucose 40% Gel 15 Gm Tube) 15 - 30 gm PO UD PRN; Protocol PRN Reason: Hypoglycemia Protocol Stop: 09/12/23 22:24 Hydromorphone HCl (Hydromorphone Inj 0.5 Mg/0.5 Ml Syr) 0.25 mg IV Q6H PRN PRN Reason: Pain Stop: 04/25/23 22:04 Last Admin: 04/17/23 21:37 Dose: 0.25 mg Promethazine HCl 6.25 mg/ (Sodium Chloride) 50.25 mls @ 201 mls/hr IV Q6H PRN PRN Reason: Nausea And Vomiting Stop: 05/11/23 22:04 Last Infusion: 04/15/23 06:31 Dose: Infused Insulin Aspart (Insulin Aspart Per Unit Charge) 0 units SC ACHS [facility] Stop: 05/11/23 22:24 Last Admin: 04/19/23 12:22 Dose: 2 units Levothyroxine Sodium (Levothyroxine Sodium 25 Mcg Tablet) 25 mcg PO DAILYBB [facility] Stop: 05/12/23 06:29 Last Admin: 04/19/23 06:23 Dose: 25 mcg Loperamide HCl (Loperamide Hcl 2 Mg Cap) 2 mg PO UD PRN PRN Reason: Diarrhea Stop: 05/17/23 13:08 Metoprolol Succinate (Metoprolol Succ 50mg Ext Rel Tab) 50 mg PO BID [facility] Stop: 05/16/23 20:59 Last Admin: 04/19/23 08:28 Dose: 50 mg Miscellaneous (Carbohydrates For Hypoglycemia ) 15 - 30 gm PO UD PRN PRN Reason: Hypoglycemia Protocol Stop: 05/11/23 22:24 Multivitamins (Multivitamin Tab) 1 tab PO DAILY [facility] Stop: 05/12/23 08:59 Last Admin: 04/19/23 08:27 Dose: 1 tab Nystatin (Nystatin Powder 15gm Btl) 1 appln EXT BID PRN PRN Reason: Affected Skin Folds Stop: 05/12/23 15:43 Tramadol HCl (Tramadol Hcl 50 Mg Tablet) 100 mg PO Q6H PRN PRN Reason: severe pain 7+ Stop: 05/13/23 17:59 Last Admin: 04/19/23 01:12 Dose: 100 mg
[2023-04-19] MEDS: HYDROmorphone INJ 0.5 MG/0.5 ML SYR IV PRN (19:29)
[2023-04-19] MEDS: GLUCOSE 10 TAB/TUBE PO PRN (22:01)
[2023-04-20] MEDS: HYDROmorphone INJ 0.5 MG/0.5 ML SYR IV PRN (02:14)
[2023-04-20] MEDS: LEVOTHYROXINE SODIUM 25 MCG TABLET PO SCH (06:28)
[2023-04-20 07:56] LABS: Appearance Urine Clear (Clear); Bacteria Urine Automated 4+ (Negative); Bilirubin Urine Negative (Negative); Blood Urine Negative (Negative); Color Urine Yellow; Epithelial Cell Urine Auto 20-30 /lpf (0-5); Glucose Urine UA Negative (Negative); Ketones Urine Negative (Negative); Leukocyte Esterase Urine Trace (Negative); Nitrite Urine Negative (Negative); Protein Urine 2+ (Negative); RBC Urine Automated 0-4 /hpf (0-4); Specific Gravity Urine 1.012 (1.000-1.030); Urobilinogen Urine Negative (Negative)
[2023-04-20] MEDS: DULoxetine HCL 20 MG CAP PO SCH (07:56)
[2023-04-20] MEDS: MULTIVITAMIN TAB PO SCH (07:56)
[2023-04-20] MEDS: FAMOTIDINE 40 MG TABLET PO SCH (07:56)
[2023-04-20] MEDS: AMIODARONE 200 MG TAB PO SCH (07:56)
[2023-04-20] MEDS: APIXABAN 5 MG TABLET PO SCH ×2 (07:57→20:40)
[2023-04-20] MEDS: ATORVASTATIN 40 MG TAB PO SCH (07:57)
[2023-04-20] MEDS: METOPROLOL SUCC 50MG EXT REL TAB PO SCH ×2 (07:57→20:40)
[2023-04-20] MEDS: FENOFIBRATE PO SCH (07:57)
[2023-04-20] MEDS: FIDAXOMICIN 200 MG TAB PO SCH ×2 (08:03→20:40)
[2023-04-20] MEDS: INSULIN ASPART PER UNIT CHARGE SC SCH ×4 (08:30→20:40)
--- NOTE | 2023-04-20 12:48 | Hospitalist Progress Note ---
Date of Service April 20, 2023 Assessment & Plan (1) Sepsis: Plan: 2/2 cdiff colitis (2) C. difficile colitis: Plan: Fidaxomicin, no evidence of active bleeding per GI. Excessive diarrhea, cont supportive care with Imodium (only one dose given), IVF and tramadol for crampy pain. She is borderline severe c-diff infection and will not change abx regimen. KUB showed borderline dilated gas-filled loops of large and small bowel with possible ileus but no obstruction We will continue current management And advance diet as tolerated Has been tolerating regular diet and abdominal symptoms are reasonably controlled Has been having occasional diarrhea but otherwise asymptomatic Still having diarrhea but did not get any Imodium Discussed with nurse to provide Imodium as ordered Denies any other abdominal symptoms and she will be discharged tomorrow if accepted to facility Diarrhea is reasonably controlled Awaiting approval from insurance and bed from the facility before she can be discharged Diarrhea is being formed and denies any other symptoms Abnormal UA Shows 4+ bacteria and elevated white cell but nitrate is nitrite is negative Patient denies any symptoms Will await culture before putting her on any antibiotic (3) Norovirus: Plan: acute, cont supportive care efforts. Contact precautions. Requiring occasional Imodium to control diarrhea (4) Anemia: Plan: chronic, stable. No overt blood loss at this time. (5) Metastatic carcinoma: Plan: Possible cervical cancer with metastasis to L4/L5 vertebra per oncology. She is undergoing XRT therapy with Dr. Steffanie Pineda which has been put on hold until after her discharge. No acute symptoms (6) Afib: Plan: Chronic, currently in afib. Cont amiodarone, Toprol per home regimen. We will start apixaban and discontinue Lovenox Heart rate remains elevated Will increase the dose of Toprol-XL to 50 mg twice daily and discontinue amlo dipine Rate is controlled at 88/min Heart rate remains stable but tachycardia at 1 on 2 (7) CAD (coronary artery disease): Plan: chronic, stable. Cont medical management. (8) Depressive disorder: Plan: chronic, stable. Cont Duloxetine per home regimen. (9) Hypothyroidism: Plan: chronic, stable. Cont Synthroid per home regimen DVT proph-SCDs Full Code Dispo-awaiting placement Awaiting placement Admission and Anticipated Discharge Date Admission Date: April 11, 2023 Subjective 04/14/2023 The patient was seen and examined in medical telemetry unit She has been complaining abdominal discomfort and KUB showed possible ileus Has been passing gas and abdomen remains soft Denies any other significant symptoms except weakness 04/15/2023 The patient was seen and examined in medical telemetry unit She has been a little better today but is still remains weak Has had PT evaluation and recommended rehab 04/16/2023 The patient was seen and examined in medical telemetry unit She has been weak and complains minimal abdominal pain No nausea no vomiting and no distention of the abdomen 04/17/2023 The patient was seen and examined in medical telemetry unit She has been stable and complains of occasional diarrhea and headache Otherwise denies any significant symptoms and awaiting placement 04/18/2023 The patient was seen and examined in medical telemetry unit She has been stable and awaiting placement Still has some diarrhea but did not receive any Imodium 04/19/2023 The patient was seen and examined in medical telemetry unit She has been stable and having minimal diarrhea Denies abdominal pain, nausea and or vomiting 04/20/2023 The patient was seen and examined in medical telemetry unit She has been much better today and denies any symptoms Diarrhea is more formed and denies any urinary symptoms UA initial examination shows possible infection await cultures Review of Systems Review of Systems: All systems reviewed and are unremarkable except as noted below Physical Exam Physical Exam: Sitting on a chair without any acute distress Constitutional: well developed, well nourished, + ill appearing and average body habitus Eyes: PERRL, conjunctivae normal, anicteric sclerae ENMT: external ear and nose normal, oropharynx normal Neck: trachea midline, no thyromegaly Respiratory: no respiratory distress Auscultation: lungs clear to auscultation bilaterally Cardiovascular: Rate/Rhythm: regular rate and regular rhythm Heart Sounds: normal S1 and normal S2; no murmur Extremities: + edema (Trace edema bilaterally) Gastrointestinal (Abdomen): Inspection/Auscultation: normal bowel sounds; abdomen not distended Percussion/Palpation: abdomen soft; abdomen nontender Neurologic: normal touch/pain/proprioception and moves all extremities; no focal motor deficits Lymphatic: no cervical or axillary lymphadenopathy Results & Data Results & Data Vital Signs (Past 12 Hours) Vital Signs Temp Pulse Pulse Resp BP BP Pulse Ox 04/20/23 11:00 36.8 C 112 H 16 138/91 91 04/20/23 07:35 36.6 C 95 H 16 151/95 H 99 04/20/23 07:35 90 04/20/23 04:12 36.7 C 90 16 114/84 97 O2 Del Method 04/20/23 11:00 Room Air 04/20/23 07:35 Room Air 04/20/23 07:35 04/20/23 04:12 Room Air Laboratory Results Urine 04/20/23 Range/Units 07:09 Urine Color Yellow Urine Appearance Clear (Clear) Urine pH 5.0 (4.5-7.5) Ur Specific [place] 1.012 (1.000-1.030) Urine Protein 2+ H (Negative) Urine Glucose (UA) Negative (Negative) Medications Administered Current Inpatient Medications Acetaminophen (Acetaminophen 325 Mg Tab) 650 mg PO Q4H PRN PRN Reason: Headache Stop: 05/17/23 13:10 Last Admin: 04/19/23 06:25 Dose: 650 mg Amiodarone HCl (Amiodarone 200 Mg Tab) 200 mg PO DAILY [facility] Stop: 05/12/23 08:59 Last Admin: 04/20/23 07:56 Dose: 200 mg Apixaban (Apixaban 5 Mg Tablet) 5 mg PO BID [facility] Stop: 05/15/23 20:59 Last Admin: 04/20/23 07:57 Dose: 5 mg Atorvastatin Calcium (Atorvastatin 40 Mg Tab) 80 mg PO DAILY [facility] Stop: 05/12/23 08:59 Last Admin: 04/20/23 07:57 Dose: 80 mg Dextrose (Dextrose 50% 50 Ml Syringe) 25 - 50 ml IV UD PRN; Protocol PRN Reason: Hypoglycemia Protocol Stop: 05/11/23 22:24 Duloxetine HCl (Duloxetine Hcl 20 Mg Cap) 20 mg PO DAILY [facility] Stop: 05/12/23 08:59 Last Admin: 04/20/23 07:56 Dose: 20 mg Famotidine (Famotidine 40 Mg Tablet) 40 mg PO DAILY [facility] Stop: 05/12/23 08:59 Last Admin: 04/20/23 07:56 Dose: 40 mg Fenofibrate (Fenofibrate) 1 each PO DAILY [facility] Stop: 05/16/23 08:59 Last Admin: 04/20/23 07:57 Dose: 1 each Fidaxomicin (Fidaxomicin 200 Mg Tab) 200 mg PO BID [facility] Stop: 04/22/23 08:59 Last Admin: 04/20/23 08:03 Dose: 200 mg Glucagon (Glucagon For Inj 1 Mg Vial) 1 mg SQ UD PRN; Protocol PRN Reason: Hypoglycemia Protocol Stop: 05/11/23 22:24 Glucose (Glucose 10 Tab/Tube) 4 - 8 tab PO UD PRN; Protocol PRN Reason: Hypoglycemia Treatment Stop: 05/11/23 22:24 Last Admin: 04/19/23 22:01 Dose: 4 tab Glucose (Glucose 40% Gel 15 Gm Tube) 15 - 30 gm PO UD PRN; Protocol PRN Reason: Hypoglycemia Protocol Stop: 05/11/23 22:24 Hydromorphone HCl (Hydromorphone Inj 0.5 Mg/0.5 Ml Syr) 0.25 mg IV Q6H PRN PRN Reason: Pain Stop: 04/25/23 22:04 Last Admin: 04/20/23 02:14 Dose: 0.25 mg Promethazine HCl 6.25 mg/ (Sodium Chloride) 50.25 mls @ 201 mls/hr IV Q6H PRN PRN Reason: Nausea And Vomiting Stop: 05/11/23 22:04 Last Infusion: 04/15/23 06:31 Dose: Infused Insulin Aspart (Insulin Aspart Per Unit Charge) 0 units SC ACHS [facility] Stop: 05/11/23 22:24 Last Admin: 04/20/23 12:44 Dose: 4 units Levothyroxine Sodium (Levothyroxine Sodium 25 Mcg Tablet) 25 mcg PO DAILYBB [facility] Stop: 05/12/23 06:29 Last Admin: 04/20/23 06:28 Dose: 25 mcg Loperamide HCl (Loperamide Hcl 2 Mg Cap) 2 mg PO UD PRN PRN Reason: Diarrhea Stop: 05/17/23 13:08 Metoprolol Succinate (Metoprolol Succ 50mg Ext Rel Tab) 50 mg PO BID [facility] Stop: 05/16/23 20:59 Last Admin: 04/20/23 07:57 Dose: 50 mg Miscellaneous (Carbohydrates For Hypoglycemia ) 15 - 30 gm PO UD PRN PRN Reason: Hypoglycemia Protocol Stop: 05/11/23 22:24 Multivitamins (Multivitamin Tab) 1 tab PO DAILY [facility] Stop: 05/12/23 08:59 Last Admin: 04/20/23 07:56 Dose: 1 tab Nystatin (Nystatin Powder 15gm Btl) 1 appln EXT BID PRN PRN Reason: Affected Skin Folds Stop: 05/12/23 15:43 Tramadol HCl (Tramadol Hcl 50 Mg Tablet) 100 mg PO Q6H PRN PRN Reason: severe pain 7+ Stop: 05/13/23 17:59 Last Admin: 04/19/23 01:12 Dose: 100 mg
[2023-04-20] MEDS: traMADol HCL 50 MG TABLET PO PRN ×2 (13:42→20:41)
[2023-04-21] MEDS: LEVOTHYROXINE SODIUM 25 MCG TABLET PO SCH (05:33)
[2023-04-21 08:10] LABS: Creatinine Clr Calc Pharmacy 33.6 ml/min; Est GFR (African American) 42.7 ml/min; Est GFR (Non-African American) 36.8 ml/min
[2023-04-21] MEDS: ATORVASTATIN 40 MG TAB PO SCH (08:38)
[2023-04-21] MEDS: METOPROLOL SUCC 50MG EXT REL TAB PO SCH ×2 (08:38→20:23)
[2023-04-21] MEDS: DULoxetine HCL 20 MG CAP PO SCH (08:38)
[2023-04-21] MEDS: FIDAXOMICIN 200 MG TAB PO SCH ×2 (08:38→20:23)
[2023-04-21] MEDS: APIXABAN 5 MG TABLET PO SCH ×2 (08:38→20:23)
[2023-04-21] MEDS: FAMOTIDINE 40 MG TABLET PO SCH (08:38)
[2023-04-21] MEDS: AMIODARONE 200 MG TAB PO SCH (08:38)
[2023-04-21] MEDS: MULTIVITAMIN TAB PO SCH (08:38)
[2023-04-21] MEDS: FENOFIBRATE PO SCH (08:39)
[2023-04-21] MEDS: INSULIN ASPART PER UNIT CHARGE SC SCH ×4 (09:57→20:24)
[2023-04-21] MEDS: ACETAMINOPHEN 325 MG TAB PO PRN (13:50)
--- NOTE | 2023-04-21 15:20 | Hospitalist Progress Note ---
Date of Service April 21, 2023 Assessment & Plan (1) Sepsis: Plan: 2/2 cdiff colitis (2) C. difficile colitis: Plan: Fidaxomicin, no evidence of active bleeding per GI. Excessive diarrhea, cont supportive care with Imodium (only one dose given), IVF and tramadol for crampy pain. She is borderline severe c-diff infection and will not change abx regimen. KUB showed borderline dilated gas-filled loops of large and small bowel with possible ileus but no obstruction We will continue current management And advance diet as tolerated Has been tolerating regular diet and abdominal symptoms are reasonably controlled Has been having occasional diarrhea but otherwise asymptomatic Still having diarrhea but did not get any Imodium Discussed with nurse to provide Imodium as ordered Denies any other abdominal symptoms and she will be discharged tomorrow if accepted to facility Diarrhea is reasonably controlled Awaiting approval from insurance and bed from the facility before she can be discharged Diarrhea is being formed and denies any other symptoms Course of the antibiotic is finished Abnormal UA Shows 4+ bacteria and elevated white cell but nitrate is nitrite is negative Patient denies any symptoms Urine is growing gram-negative bacilli-further sensitivities pending Started on oral Keflex (3) Norovirus: Plan: acute, cont supportive care efforts. Contact precautions. Requiring occasional Imodium to control diarrhea (4) Anemia: Plan: chronic, stable. No overt blood loss at this time. (5) Metastatic carcinoma: Plan: Possible cervical cancer with metastasis to L4/L5 vertebra per oncology. She is undergoing XRT therapy with Dr. Steffanie Pineda which has been put on hold until after her discharge. No acute symptoms (6) Afib: Plan: Chronic, currently in afib. Cont amiodarone, Toprol per home regimen. We will start apixaban and discontinue Lovenox Heart rate remains elevated Will increase the dose of Toprol-XL to 50 mg twice daily and discontinue amlodipine Rate is controlled at 88/min Heart rate remains stable but tachycardia at 102 (7) CAD (coronary artery disease): Plan: chronic, stable. Cont medical management. (8) Depressive disorder: Plan: chronic, stable. Cont Duloxetine per home regimen. (9) Hypothyroidism: Plan: chronic, stable. Cont Synthroid per home regimen DVT proph-SCDs Full Code Dispo-awaiting placement Awaiting placement Admission and Anticipated Discharge Date Admission Date: April 11, 2023 Subjective 04/14/2023 The patient was seen and examined in medical telemetry unit She has been complaining abdominal discomfort and KUB showed possible ileus Has been passing gas and abdomen remains soft Denies any other significant symptoms except weakness 04/15/2023 The patient was seen and examined in medical telemetry unit She has been a little better today but is still remains weak Has had PT evaluation and recommended rehab 04/16/2023 The patient was seen and examined in medical telemetry unit She has been weak and complains minimal abdominal pain No nausea no vomiting and no distention of the abdomen 04/17/2023 The patient was seen and examined in medical telemetry unit She has been stable and complains of occasional diarrhea and headache Otherwise denies any significant symptoms and awaiting placement 04/18/2023 The patient was seen and examined in medical telemetry unit She has been stable and awaiting placement Still has some diarrhea but did not receive any Imodium 04/19/2023 The patient was seen and examined in medical telemetry unit She has been stable and having minimal diarrhea Denies abdominal pain, nausea and or vomiting 04/20/2023 The patient was seen and examined in medical telemetry unit She has been much better today and denies any symptoms Diarrhea is more formed and denies any urinary symptoms UA initial examination shows possible infection await cultures 04/21/2023 The patient was seen and examined in medical telemetry unit She has been stable and does not have any more diarrhea She is waiting to be placed and discharged Review of Systems Review of Systems: All systems reviewed and are unremarkable except as noted below Physical Exam Physical Exam: Sitting on a chair without any acute distress Constitutional: well developed, well nourished, + ill appearing and average body habitus Eyes: PERRL, conjunctivae normal, anicteric sclerae ENMT: external ear and nose normal, oropharynx normal Neck: trachea midline, no thyromegaly Respiratory: no respiratory distress Auscultation: lungs clear to auscultation bilaterally Cardiovascular: Rate/Rhythm: regular rate and regular rhythm Heart Sounds: normal S1 and normal S2; no murmur Extremities: + edema (Trace edema bilaterally) Gastrointestinal (Abdomen): Inspection/Auscultation: normal bowel sounds; abdomen not distended Percussion/Palpation: abdomen soft; abdomen nontender Musculoskeletal: No acute arthritis involving any joint Skin: Has sacral decubiti stage II as in the picture Neurologic: normal touch/pain/proprioception and moves all extremities; no focal motor deficits Lymphatic: no cervical or axillary lymphadenopathy Results & Data Results & Data Vital Signs (Past 12 Hours) Vital Signs Temp Pulse Resp BP Pulse Ox O2 Del Method 04/21/23 10:40 36.6 C 97 H 16 137/82 96 Room Air 04/21/23 06:56 36.7 C 88 20 146/67 H 98 Room Air Laboratory Results BMP 04/21/23 07:16 Creatinine 1.42 H Medications Administered Current Inpatient Medications Acetaminophen (Acetaminophen 325 Mg Tab) 650 mg PO Q4H PRN PRN Reason: Headache Stop: 05/17/23 13:10 Last Admin: 04/21/23 13:50 Dose: 650 mg Amiodarone HCl (Amiodarone 200 Mg Tab) 200 mg PO DAILY [facility] Stop: 05/12/23 08:59 Last Admin: 04/21/23 08:38 Dose: 200 mg Apixaban (Apixaban 5 Mg Tablet) 5 mg PO BID [facility] Stop: 05/15/23 20:59 Last Admin: 04/21/23 08:38 Dose: 5 mg Atorvastatin Calcium (Atorvastatin 40 Mg Tab) 80 mg PO DAILY [facility] Stop: 05/12/23 08:59 Last Admin: 04/21/23 08:38 Dose: 80 mg Cephalexin HCl (Cephalexin 500 Mg Cap) 500 mg PO BID [facility]; Protocol Stop: 04/26/23 20:59 Dextrose (Dextrose 50% 50 Ml Syringe) 25 - 50 ml IV UD PRN; Protocol PRN Reason: Hypoglycemia Protocol Stop: 05/11/23 22:24 Duloxetine HCl (Duloxetine Hcl 20 Mg Cap) 20 mg PO DAILY [facility] Stop: 05/12/23 08:59 Last Admin: 04/21/23 08:38 Dose: 20 mg Famotidine (Famotidine 40 Mg Tablet) 40 mg PO DAILY [facility] Stop: 05/12/23 08:59 Last Admin: 04/21/23 08:38 Dose: 40 mg Fenofibrate (Fenofibrate) 1 each PO DAILY [facility] Stop: 05/16/23 08:59 Last Admin: 04/21/23 08:39 Dose: 1 each Fidaxomicin (Fidaxomicin 200 Mg Tab) 200 mg PO BID [facility] Stop: 04/22/23 08:59 Last Admin: 04/21/23 08:38 Dose: 200 mg Glucagon (Glucagon For Inj 1 Mg Vial) 1 mg SQ UD PRN; Protocol PRN Reason: Hypoglycemia Protocol Stop: 05/11/23 22:24 Glucose (Glucose 10 Tab/Tube) 4 - 8 tab PO UD PRN; Protocol PRN Reason: Hypoglycemia Treatment Stop: 05/11/23 22:24 Last Admin: 04/19/23 22:01 Dose: 4 tab Glucose (Glucose 40% Gel 15 Gm Tube) 15 - 30 gm PO UD PRN; Protocol PRN Reason: Hypoglycemia Protocol Stop: 05/11/23 22:24 Hydromorphone HCl (Hydromorphone Inj 0.5 Mg/0.5 Ml Syr) 0.25 mg IV Q6H PRN PRN Reason: Pain Stop: 04/25/23 22:04 Last Admin: 04/20/23 02:14 Dose: 0.25 mg Promethazine HCl 6.25 mg/ (Sodium Chloride) 50.25 mls @ 201 mls/hr IV Q6H PRN PRN Reason: Nausea And Vomiting Stop: 05/11/23 22:04 Last Infusion: 04/15/23 06:31 Dose: Infused Insulin Aspart (Insulin Aspart Per Unit Charge) 0 units SC ACHS [facility] Stop: 05/11/23 22:24 Last Admin: 04/21/23 12:58 Dose: 6 units Levothyroxine Sodium (Levothyroxine Sodium 25 Mcg Tablet) 25 mcg PO DAILYBB [facility] Stop: 05/12/23 06:29 Last Admin: 04/21/23 05:33 Dose: 25 mcg Loperamide HCl (Loperamide Hcl 2 Mg Cap) 2 mg PO UD PRN PRN Reason: Diarrhea Stop: 05/17/23 13:08 Metoprolol Succinate (Metoprolol Succ 50mg Ext Rel Tab) 50 mg PO BID [facility] Stop: 05/16/23 20:59 Last Admin: 04/21/23 08:38 Dose: 50 mg Miscellaneous (Carbohydrates For Hypoglycemia ) 15 - 30 gm PO UD PRN PRN Reason: Hypoglycemia Protocol Stop: 05/11/23 22:24 Multivitamins (Multivitamin Tab) 1 tab PO DAILY [facility] Stop: 05/12/23 08:59 Last Admin: 04/21/23 08:38 Dose: 1 tab Nystatin (Nystatin Powder 15gm Btl) 1 appln EXT BID PRN PRN Reason: Affected Skin Folds Stop: 05/12/23 15:43 Tramadol HCl (Tramadol Hcl 50 Mg Tablet) 100 mg PO Q6H PRN PRN Reason: severe pain 7+ Stop: 05/13/23 17:59 Last Admin: 04/20/23 20:41 Dose: 100 mg
[2023-04-21] MEDS: cephALEXin 500 MG CAP PO SCH (20:23)
[2023-04-21] MEDS: traMADol HCL 50 MG TABLET PO PRN (20:26)
[2023-04-22] MEDS: LEVOTHYROXINE SODIUM 25 MCG TABLET PO SCH (05:56)
[2023-04-22 06:33] LABS: Basophils # (auto) 0.03 K/uL (0.00-0.20); Basophils % (auto) 0.3 %; Eosinophils # (auto) 0.36 K/uL (0.00-0.50); Eosinophils % (auto) 3.9 %; Hematocrit (blood only) 30.2 % (37.0-47.0); Hemoglobin 9.3 g/dl (12.0-16.0); Immature Granulocytes # (auto) 0.06 K/uL (0.01-0.20); Immature Granulocytes % (auto) 0.7 %; Lymphocytes # (auto) 0.91 K/uL (1.20-3.40); Lymphocytes % (auto) 9.9 %; Mean Corpuscular Hemoglobin 23.3 pg (25.0-34.0); Mean Corpuscular Hgb Conc 30.8 g/dL (32.0-36.0); Mean Corpuscular Volume 75.7 fL (80.0-100.0); Mean Platelet Volume 9.3 fL (9.4-12.4); Monocytes % (auto) 6.5 %; Neutrophils # (auto) 7.23 K/uL (1.40-6.50); Neutrophils % (auto) 78.7 %; Platelet Count 337 K/uL (130-400); RDW Coefficient of Variation 17.2 % (11.5-14.5); RDW Standard Deviation 45.9 fL (36.4-46.3); Red Blood Count 3.99 M/uL (4.20-5.40); White Blood Count 9.19 K/ul (4.8-10.8)
[2023-04-22 06:56] LABS: BUN Creatinine Ratio 15.2 (10-20); Calcium 8.4 mg/dl (8.6-10.3); Creatinine Clr Calc Pharmacy 34.6 ml/min; Est GFR (African American) 44.2 ml/min; Est GFR (Non-African American) 38.1 ml/min; Potassium 3.8 mmol/L (3.5-5.1)
[2023-04-22] MEDS: FENOFIBRATE PO SCH (08:10)
[2023-04-22] MEDS: cephALEXin 500 MG CAP PO SCH ×2 (08:10→23:04)
[2023-04-22] MEDS: METOPROLOL SUCC 50MG EXT REL TAB PO SCH ×2 (08:10→23:03)
[2023-04-22] MEDS: APIXABAN 5 MG TABLET PO SCH ×2 (08:10→23:04)
[2023-04-22] MEDS: FAMOTIDINE 40 MG TABLET PO SCH (08:11)
[2023-04-22] MEDS: AMIODARONE 200 MG TAB PO SCH (08:11)
[2023-04-22] MEDS: DULoxetine HCL 20 MG CAP PO SCH (08:11)
[2023-04-22] MEDS: MULTIVITAMIN TAB PO SCH (08:11)
[2023-04-22] MEDS: ATORVASTATIN 40 MG TAB PO SCH (08:11)
[2023-04-22] MEDS: INSULIN ASPART PER UNIT CHARGE SC SCH ×4 (09:44→23:00)
[2023-04-22] MEDS: ACETAMINOPHEN 325 MG TAB PO PRN (12:17)
--- NOTE | 2023-04-22 17:08 | Hospitalist Progress Note ---
Date of Service April 22, 2023 Assessment & Plan (1) Sepsis: Plan: 2/2 cdiff colitis (2) C. difficile colitis: Plan: Fidaxomicin, no evidence of active bleeding per GI. Excessive diarrhea, cont supportive care with Imodium (only one dose given), IVF and tramadol for crampy pain. She is borderline severe c-diff infection and will not change abx regimen. KUB showed borderline dilated gas-filled loops of large and small bowel with possible ileus but no obstruction We will continue current management And advance diet as tolerated Has been tolerating regular diet and abdominal symptoms are reasonably controlled Has been having occasional diarrhea but otherwise asymptomatic Still having diarrhea but did not get any Imodium Discussed with nurse to provide Imodium as ordered Denies any other abdominal symptoms and she will be discharged tomorrow if accepted to facility Diarrhea is reasonably controlled Awaiting approval from insurance and bed from the facility before she can be discharged Diarrhea is being formed and denies any other symptoms Course of the antibiotic for C. difficile colitis is finished No more diarrhea Abnormal UA Shows 4+ bacteria and elevated white cell but nitrate is nitrite is negative Patient denies any symptoms Urine is growing gram-negative bacilli-further sensitivities pending Started on oral Keflex She will have Keflex for about 7 days (3) Norovirus: Plan: acute, cont supportive care efforts. Contact precautions. Requiring occasional Imodium to control diarrhea (4) Anemia: Plan: chronic, stable. No overt blood loss at this time. (5) Metastatic carcinoma: Plan: Possible cervical cancer with metastasis to L4/L5 vertebra per oncology. She is undergoing XRT therapy with Dr. Steffanie Pineda which has been put on hold until after her discharge. No acute symptoms (6) Afib: Plan: Chronic, currently in afib. Cont amiodarone, Toprol per home regimen. We will start apixaban and discontinue Lovenox Heart rate remains elevated Will increase the dose of Toprol-XL to 50 mg twice daily and discontinue amlodipine Rate is controlled at 88/min Heart rate remains stable but tachycardia at 102 (7) CAD (coronary artery disease): Plan: chronic, stable. Cont medical management. (8) Depressive disorder: Plan: chronic, stable. Cont Duloxetine per home regimen. (9) Hypothyroidism: Plan: chronic, stable. Cont Synthroid per home regimen DVT proph-SCDs Full Code Dispo-awaiting placement Has been accepted and will be discharged tomorrow Admission and Anticipated Discharge Date Admission Date: April 11, 2023 Subjective 04/14/2023 The patient was seen and examined in medical telemetry unit She has been complaining abdominal discomfort and KUB showed possible ileus Has been passing gas and abdomen remains soft Denies any other significant symptoms except weakness 04/15/2023 The patient was seen and examined in medical telemetry unit She has been a little better today but is still remains weak Has had PT evaluation and recommended rehab 04/16/2023 The patient was seen and examined in medical telemetry unit She has been weak and complains minimal abdominal pain No nausea no vomiting and no distention of the abdomen 04/17/2023 The patient was seen and examined in medical telemetry unit She has been stable and complains of occasional diarrhea and headache Otherwise denies any significant symptoms and awaiting placement 04/18/2023 The patient was seen and examined in medical telemetry unit She has been stable and awaiting placement Still has some diarrhea but did not receive any Imodium 04/19/2023 The patient was seen and examined in medical telemetry unit She has been stable and having minimal diarrhea Denies abdominal pain, nausea and or vomiting 04/20/2023 The patient was seen and examined in medical telemetry unit She has been much better today and denies any symptoms Diarrhea is more formed and denies any urinary symptoms UA initial examination shows possible infection await cultures 04/21/2023 The patient was seen and examined in medical telemetry unit She has been stable and does not have any more diarrhea She is waiting to be placed and discharged 04/22/2023 The patient was seen and examined in medical telemetry unit She has been accepted to go to skilled care facility but does not feel good today to go No more diarrhea Remains generally weak Review of Systems Review of Systems: All systems reviewed and are unremarkable except as noted below Physical Exam Physical Exam: Sitting on a chair without any acute distress Constitutional: well developed, well nourished, + ill appearing and average body habitus Eyes: PERRL, conjunctivae normal, anicteric sclerae ENMT: external ear and nose normal, oropharynx normal Neck: trachea midline, no thyromegaly Respiratory: no respiratory distress Auscultation: lungs clear to auscultation bilaterally Cardiovascular: Rate/Rhythm: regular rate and regular rhythm Heart Sounds: normal S1 and normal S2; no murmur Extremities: + edema (Trace edema bilaterally) Gastrointestinal (Abdomen): Inspection/Auscultation: normal bowel sounds; abdomen not distended Percussion/Palpation: abdomen soft; abdomen nontender Neurologic: normal touch/pain/proprioception and moves all extremities; no focal motor deficits Lymphatic: no cervical or axillary lymphadenopathy Results & Data Results & Data Vital Signs (Past 12 Hours) Vital Signs Temp Pulse Resp BP Pulse Ox O2 Del Method 04/22/23 16:48 36.7 C 103 H 18 126/79 96 Room Air 04/22/23 09:15 36.6 C 98 H 17 142/82 H 97 Room Air Laboratory Results Short CBC 04/22/23 Range/Units 05:50 WBC 9.19 (4.8-10.8) K/ul Hgb 9.3 L (12.0-16.0) g/dl Hct 30.2 L (37.0-47.0) % Plt Count 337 (130-400) K/uL BMP 04/22/23 05:50 Sodium 135 L Potassium 3.8 Chloride 105 Carbon Dioxide 23 BUN 21 Creatinine 1.38 H Glucose 133 H Calcium 8.4 L Medications Administered Current Inpatient Medications Acetaminophen (Acetaminophen 325 Mg Tab) 650 mg PO Q4H PRN PRN Reason: Headache Stop: 05/17/23 13:10 Last Admin: 04/22/23 12:17 Dose: 650 mg Amiodarone HCl (Amiodarone 200 Mg Tab) 200 mg PO DAILY [facility] Stop: 05/12/23 08:59 Last Admin: 04/22/23 08:11 Dose: 200 mg Apixaban (Apixaban 5 Mg Tablet) 5 mg PO BID [facility] Stop: 05/15/23 20:59 Last Admin: 04/22/23 08:10 Dose: 5 mg Atorvastatin Calcium (Atorvastatin 40 Mg Tab) 80 mg PO DAILY [facility] Stop: 05/12/23 08:59 Last Admin: 04/22/23 08:11 Dose: 80 mg Cephalexin HCl (Cephalexin 500 Mg Cap) 500 mg PO BID [facility]; Protocol Stop: 04/26/23 20:59 Last Admin: 04/22/23 08:10 Dose: 500 mg Dextrose (Dextrose 50% 50 Ml Syringe) 25 - 50 ml IV UD PRN; Protocol PRN Reason: Hypoglycemia Protocol Stop: 05/11/23 22:24 Duloxetine HCl (Duloxetine Hcl 20 Mg Cap) 20 mg PO DAILY [facility] Stop: 05/12/23 08:59 Last Admin: 04/22/23 08:11 Dose: 20 mg Famotidine (Famotidine 40 Mg Tablet) 40 mg PO DAILY [facility] Stop: 05/12/23 08:59 Last Admin: 04/22/23 08:11 Dose: 40 mg Fenofibrate (Fenofibrate) 1 each PO DAILY [facility] Stop: 05/16/23 08:59 Last Admin: 04/22/23 08:10 Dose: 1 each Glucagon (Glucagon For Inj 1 Mg Vial) 1 mg SQ UD PRN; Protocol PRN Reason: Hypoglycemia Protocol Stop: 05/11/23 22:24 Glucose (Glucose 10 Tab/Tube) 4 - 8 tab PO UD PRN; Protocol PRN Reason: Hypoglycemia Treatment Stop: 05/11/23 22:24 Last Admin: 04/19/23 22:01 Dose: 4 tab Glucose (Glucose 40% Gel 15 Gm Tube) 15 - 30 gm PO UD PRN; Protocol PRN Reason: Hypoglycemia Protocol Stop: 05/11/23 22:24 Hydromorphone HCl (Hydromorphone Inj 0.5 Mg/0.5 Ml Syr) 0.25 mg IV Q6H PRN PRN Reason: Pain Stop: 04/25/23 22:04 Last Admin: 04/20/23 02:14 Dose: 0.25 mg Promethazine HCl 6.25 mg/ (Sodium Chloride) 50.25 mls @ 201 mls/hr IV Q6H PRN PRN Reason: Nausea And Vomiting Stop: 05/11/23 22:04 Last Infusion: 04/15/23 06:31 Dose: Infused Insulin Aspart (Insulin Aspart Per Unit Charge) 0 units SC ACHS [facility] Stop: 05/11/23 22:24 Last Admin: 04/22/23 12:57 Dose: 5 units Levothyroxine Sodium (Levothyroxine Sodium 25 Mcg Tablet) 25 mcg PO DAILYBB [facility] Stop: 05/12/23 06:29 Last Admin: 04/22/23 05:56 Dose: 25 mcg Loperamide HCl (Loperamide Hcl 2 Mg Cap) 2 mg PO UD PRN PRN Reason: Diarrhea Stop: 05/17/23 13:08 Metoprolol Succinate (Metoprolol Succ 50mg Ext Rel Tab) 50 mg PO BID [facility] Stop: 05/16/23 20:59 Last Admin: 04/22/23 08:10 Dose: 50 mg Miscellaneous (Carbohydrates For Hypoglycemia ) 15 - 30 gm PO UD PRN PRN Reason: Hypoglycemia Protocol Stop: 05/11/23 22:24 Multivitamins (Multivitamin Tab) 1 tab PO DAILY [facility] Stop: 05/12/23 08:59 Last Admin: 04/22/23 08:11 Dose: 1 tab Nystatin (Nystatin Powder 15gm Btl) 1 appln EXT BID PRN PRN Reason: Affected Skin Folds Stop: 05/12/23 15:43 Tramadol HCl (Tramadol Hcl 50 Mg Tablet) 100 mg PO Q6H PRN PRN Reason: severe pain 7+ Stop: 05/13/23 17:59 Last Admin: 04/21/23 20:26 Dose: 100 mg
[2023-04-22] MEDS: HYDROmorphone INJ 0.5 MG/0.5 ML SYR IV PRN (23:01)
[2023-04-23] MEDS: LEVOTHYROXINE SODIUM 25 MCG TABLET PO SCH (06:16)
[2023-04-23] MEDS: FAMOTIDINE 40 MG TABLET PO SCH (08:31)
[2023-04-23] MEDS: MULTIVITAMIN TAB PO SCH (08:31)
[2023-04-23] MEDS: cephALEXin 500 MG CAP PO SCH (08:31)
[2023-04-23] MEDS: DULoxetine HCL 20 MG CAP PO SCH (08:32)
[2023-04-23] MEDS: ATORVASTATIN 40 MG TAB PO SCH (08:32)
[2023-04-23] MEDS: AMIODARONE 200 MG TAB PO SCH (08:32)
[2023-04-23] MEDS: METOPROLOL SUCC 50MG EXT REL TAB PO SCH (08:32)
[2023-04-23] MEDS: APIXABAN 5 MG TABLET PO SCH (08:32)
[2023-04-23] MEDS: FENOFIBRATE PO SCH (08:33)
[2023-04-23] MEDS: INSULIN ASPART PER UNIT CHARGE SC SCH ×2 (09:48→13:27)
[2023-04-23] MEDS: ACETAMINOPHEN 325 MG TAB PO PRN (11:09)
--- NOTE | 2023-04-23 12:20 | Discharge Summary ---
Discharge Summary Date of Service April 23, 2023 Notes For Next Care Provider Medication Changes From Visit Metoprolol dose increased to 50mg BID Amlodipine 5mg discontinued Admission HPI Per Admitting Provider History obtained from patient and records. Medical history significant for chronic diastolic heart failure, CAD status post stent, A-fib/PE/DVT on Eliquis, hypertension, hyperlipidemia, DM2 on oral medications, hypothyroidism, CRI (unknown baseline), chronic anemia (unknown baseline), metastatic cervical cancer ongoing radiotherapy, GERD, IBS as per rec ords, past history of C. difficile, past tobacco abuse. Last confinement in [facility] for leg cellulitis. Patient noted increasing weakness over the last few days. Watery diarrhea, dark stools attributed to iron intake. Achy abdominal pain. Some trouble swallowing. No headache, no chest pain, no unusual SOB. Lightheadedness on getting up causing patient to fall. SBP 90s upon arrival at the ER. Patient received oral vancomycin at the ER for C. difficile colitis. Medical Historyas above Surgical History : None as per patient Family History : Heart disease, DM Personal/Social history : Past tobacco abuse, no EtOH intake, retired [employer] employee Admission Exam Per Admitting Provider GENERAL: Comfortable, no respiratory distress SKIN: Pallor, warm HEENT: Bespectacled, pale palpebral conjunctivae, no ptosis, dry buccal mucosa NECK : Supple, no tenderness CHEST : CTA, no tenderness HEART : RRR, no obvious murmurs ABDOMEN: Some distention, hypogastric tenderness RECTAL : Intact sphincter, melanotic stool (FOBT positive) EXTREMITIES : Minimal LE swelling, no LE tenderness, no other conspicuous deformities noted NEUROLOGIC : Coherent, no facial asymmetry, no other gross focality Principal Dx & Hospital Course #1 = Principal Diagnosis (1) Sepsis: (2) C. difficile colitis: (3) Norovirus: (4) Anemia: (5) Metastatic carcinoma: (6) Afib: (7) CAD (coronary artery disease): (8) Depressive disorder: (9) Hypothyroidism: Plan 72yoF admitted with suspicion for Acute GI bleed but symptoms found to be due to c diff colitis. Diarrhea is currently resolved. C. difficile colitis Completed Fidaxomicin course, no evidence of active bleeding per GI. Had excessive diarrhea, treated with supportive care with Imodium (only one dose given), IVF and tramadol for crampy pain. KUB showed borderline dilated gas-filled loops of large and small bowel with possible ileus but no obstruction Diet advanced as tolerated Has been tolerating a regular diet and abdominal symptoms are reasonably controlled UTI UA suggestive of infection, patient denies any symptoms Urine grew Klebsiella pneumoniae, with indeterminate sensitivity to Macrobid. Otherwise pansensitive. Treated with a 7 day course of Keflex. Norovirus acute, supportive care efforts. Contact precautions. Required occasional Imodium to control diarrhea Anemia chronic, Hgb stable around 9. No overt blood loss at this time. Metastatic carcinoma Possiblecervical cancer with metastasis to L4/L5 vertebra per oncology. She is undergoing XRT therapy with Dr. Steffanie Pineda which has been put on hold until after her discharge. No acute symptoms Resume after discharge in consultation with Dr. Tony Pineda. Afib Chronic, currently in afib. Cont amiodarone, Toprol 50mg BID, discontinue amlodipine Started on apixaban and discontinued Lovenox Heart rate remains elevated CAD (coronary artery disease) chronic, stable. Continue medical management. Depressive disorder chronic, stable. Continue Duloxetine per home regimen. Hypothyroidism chronic, stable. Cont Synthroid per home regimen Discharge Exam General: Alert, oriented. No acute distress Skin: No noted rashes or bruises Psych: Appropriate mood and affect HEENT: NC/AT CV: No murmurs appreciated Resp: Breath sounds clear bilaterally, no increased effort of breathing. Abdomen: Soft, diffusely mildly tender Updated Medication List Medication Instructions Recorded Confirmed Type multivitamin 1 tab PO DAILY ##0 03/05/10 04/11/23 History tramadol 50 mg tablet 50 mg PO Q6HR PRN ##0 03/04/11 04/11/23 History acetaminophen 325 mg capsule 325 mg PO QID PRN Pain 03/17/23 04/11/23 History amiodarone 200 mg tablet 200 mg PO DAILY 03/17/23 04/11/23 History amlodipine 5 mg tablet 5 mg PO DAILY 03/17/23 04/11/23 History apixaban 5 mg tablet (Eliquis) 5 mg PO BID 03/17/23 04/11/23 History atorvastatin 80 mg tablet 80 mg PO DAILY 03/17/23 04/11/23 History cholecalciferol (vitamin D3) 25 25 mcg PO DAILY 03/17/23 04/11/23 History mcg (1,000 unit) capsule clonidine HCl 0.2 mg tablet 0.2 mg PO BID 03/17/23 04/11/23 History duloxetine 20 mg capsule,delayed 20 mg PO DAILY 03/17/23 04/11/23 History release ezetimibe 10 mg tablet (Zetia) 10 mg PO DAILY 03/17/23 04/11/23 History famotidine 40 mg tablet 40 mg PO DAILY 03/17/23 04/11/23 History fenofibrate 160 mg tablet 80 mg PO DAILY 03/17/23 04/11/23 History ferrous sulfate 325 mg (65 mg 325 mg PO DAILY 03/17/23 04/11/23 History iron) tablet,delayed release furosemide 40 mg tablet 40 mg PO BID 03/17/23 04/11/23 History glipizide 10 mg tablet 5 mg PO DAILY 03/17/23 04/11/23 History levothyroxine 25 mcg capsule 25 mcg PO DAILY 03/17/23 04/11/23 History lisinopril 20 mg tablet 20 mg PO DAILY 03/17/23 04/11/23 History magnesium oxide 500 mg tablet 500 mg PO DAILY 03/17/23 04/11/23 History melatonin 3 mg capsule 3 mg PO HS 03/17/23 04/11/23 History metoclopramide HCl 5 mg tablet 5 mg PO Q6H 03/17/23 04/11/23 History metoprolol succinate 25 mg 25 mg PO DAILY 03/17/23 04/11/23 History tablet,extended release 24 hr phenylephrine 0.25 %-mineral oil 1 applic VT QID PRN Hemorrhoids 03/17/23 04/11/23 History 14 %-petrolatm 74.9 % rectal ointment (Preparation H) metoprolol succinate 50 mg 50 mg PO BID #60 tabs 04/23/23 Rx tablet,extended release 24 hr Hospital Stay Data Consultations 04/11/23 20:33 ED Decision to Admit Stat 04/11/23 22:03 HIM [Consult Health Information Management] Stat 04/11/23 22:25 Consult Gastroenterology Routine Diagnostic Imagining Performed 04/11/23 17:56 CT abd pelvis wo con Stat Discharge Instructions Given to Patient (Per Discharging Provider) 72yoF admitted with suspicion for Acute GI bleed but symptoms found to be due to c diff colitis. Diarrhea is currently resolved. C. difficile colitis Completed Fidaxomicin course, no evidence of active bleeding per GI. Had excessive diarrhea, treated with supportive care with Imodium (only one dose given), IVF and tramadol for crampy pain. KUB showed borderline dilated gas-filled loops of large and small bowel with possible ileus but no obstruction Diet advanced as tolerated Has been tolerating a regular diet and abdominal symptoms are reasonably controlled UTI UA suggestive of infection, patient denies any symptoms Urine grew Klebsiella pneumoniae, with indeterminate sensitivity to Macrobid. Otherwise pansensitive. Treated with a 7 day course of Keflex. Norovirus acute, supportive care efforts. Contact precautions. Required occasional Imodium to control diarrhea Anemia chronic, Hgb stable around 9. No overt blood loss at this time. Metastatic carcinoma Possiblecervical cancer with metastasis to L4/L5 vertebra per oncology. She is undergoing XRT therapy with Dr. Steffanie Pineda which has been put on hold until after her discharge. No acute symptoms Resume after discharge in consultation with Dr. Tony iPneda. Afib Chronic, currently in afib. Cont amiodarone, Toprol 50mg BID, discontinue amlodipine Started on apixaban and discontinued Lovenox Heart rate remains elevated CAD (coronary artery disease) chronic, stable. Continue medical management. Depressive disorder chronic, stable. Continue Duloxetine per home regimen. Hypothyroidism chronic, stable. Cont Synthroid per home regimen Total Time Total Time Spent Total Time Spent (In Minutes): >30 minutes
== END 2023-04-23 17:00 | DRG 872 ==
LOC: ED 17:06 → SUATTDRO 21:57 → EDINP 21:57 → 2W 04-12 10:54